=== PATIENT | female | born 1985 | race Caucasian/White ===

== ENCOUNTER 2018-02-06 21:01 | Observation (INO) | payer BC, SELFPAY ==
[2018-02-06 21:02] VITALS: BP 155/101; PULSE 100; RESP 15; TEMP 36.9; BMI 38.3
--- NOTE | 2018-02-06 22:15 | CT_ITS ---
STUDY: CT BRAIN WITHOUT CONTRAST REASON FOR EXAM: Female, 32 years old. Dizziness, headache RADIATION DOSAGE (If Supplied By Facility): CTDIvol = ( 44.99 ) mGy, DLP = ( 762.36 ) mGycm TECHNIQUE: Transaxial CT imaging of the brain was performed without administration of intravenous contrast material. Individualized dose optimization techniques were used for this CT. COMPARISON: None. FINDINGS: Normal soft tissue structures. Normal calvarium. Normal size ventricles and extra-axial spaces for the patient's age. Normal white matter tracts of the cerebral hemispheres. Normal basal ganglia and thalami. Normal brainstem. Normal cerebellum. There is no intracranial hemorrhage. There are no findings of an acute ischemic infarction. Normal visualized paranasal sinuses. CT/Brain/Head without Contrast IMPRESSION: Normal unenhanced CT scan of the brain. Electronically Signed: Jose Antonio Arroyo DO at 23:15 EDT Tel [phone], Service support ,
--- NOTE | 2018-02-06 22:15 | RAD_ITS ---
STUDY: X-RAY CHEST REASON FOR EXAM: Female, 32 years old. Nausea, dizziness TECHNIQUE: Single AP portable view of the chest. COMPARISON: 02/17/2017. FINDINGS: The lungs are clear and expanded. There is no demonstrated pleural abnormality. Normal size heart. Normal mediastinum and álvaro. Normal visualized pulmonary arteries. Normal visualized aortic arch and descending thoracic aorta. Normal visualized thoracic spine. Normal visualized ribs, clavicles, and shoulders. There is no demonstrated abnormality of the visualized soft tissue structures of the upper abdomen. RAD/Chest 1 View IMPRESSION: No acute cardiopulmonary disease. Electronically Signed: Allan Damon DO at 23:35 EDT , Service support ,
--- NOTE | 2018-02-06 22:15 | EKG12_ITS ---
Test Reason : Blood Pressure : / mmHG Vent. Rate : 089 BPM Atrial Rate : 089 BPM P-R Int : 136 ms QRS Dur : 096 ms QT Int : 362 ms P-R-T Axes : 048 062 028 degrees QTc Int : 440 ms Normal sinus rhythm Normal ECG Confirmed by LINDA PETERS, TAWANA ([id number]), editor map SHAKIRA OJEDA ([id number]) on 02/09/2018 2:17:47 PM Referred By: JAN Confirmed By:TAWANA MCKEON MD
[2018-02-06 22:26] LABS: Absolute Lymphocyte Count 3.81 X10^3/ul (0.83-4.51); Absolute Neutrophil Count 6.2 X10^3/uL (2.0-7.7); Basophil# 0.01 X10^3/uL; Basophil% 0.1 % (0-1); Eosinophils% 1.8 % (0-5); Hematocrit 41.2 % (37-47); Hemoglobin 13.6 g/dl (12.0-15.0); Lymphocyte # 3.81 X10^3/ul (4.0); Lymphocyte % 34.1 % (19-41); Mean Corpuscular Hgb 30.6 pg (27.0-32.0); Mean Corpuscular Volume 92.6 fL (81-99); Mean Platelet Vol. 9.5 fl (6.2-12.0); Monocyte# 0.92 X10^3/uL; Monocyte% 8.2 % (0-10); Neutrophil # 6.21 X10^3/uL (2.7-7.7); Neutrophil % 55.7 % (47-70); Platelet Count 319 K/mm3 (150-450); RBC Distribution Width CV 12.8 % (11.6-14.6); Red Blood Count 4.45 M/mm3 (4.2-5.4); White Blood Count 11.2 K/mm3 (4.4-11.0)
[2018-02-06 22:27] LABS: POSITIVE COUNT NO; POSITIVE DIFFERENTIAL NO; POSITIVE MORPHOLOGY NO
[2018-02-06 22:36] VITALS: O2SAT 97
[2018-02-06 22:37] VITALS: BP 132/86; PULSE 95; RESP 20; O2SAT 95
[2018-02-06 22:37] LABS: Partial Thromboplast Time 25.2 Seconds (24.1-36.2); Prothrombin Time (Protime)PT. 12.8 SECONDS (11.7-14.9)
[2018-02-06 22:44] LABS: Anion Gap 10 (5-15); BUN 14 mg/dL (7-18); BUN/Creat Ratio 17.7 RATIO (10-20); Calcium,Total 8.9 mg/dL (8.5-10.1); Chloride 106 mmol/L (98-107); Creatinine, Serum 0.79 mg/dL (0.55-1.02); EST Glomerular Filtration Rate 90 mL/min (>60); Est Glom Filt Rate - Afr Amer 109 mL/min (>60); Estimated Creatinine Clearance 97.48 ml/min; Glucose 189 mg/dL (74-106); Potassium 3.7 mmol/L (3.5-5.1); Sodium Level 141 mmol/L (136-145)
[2018-02-06 23:05] VITALS: BP 122/81; PULSE 91; RESP 23; O2SAT 95
[2018-02-06 23:05] LABS: Bedside Glucose 110 mg/dL (70-110)
[2018-02-06 23:09] VITALS: BP 122/80; PULSE 85; RESP 21; O2SAT 96
--- NOTE | 2018-02-06 23:46 | HP.PCM_ITS ---
Problem List (1) Neuropathy Status: Chronic (2) Type 2 diabetes mellitus Status: Chronic (3) Hypertension Status: Chronic History of Present Illness Date of Admission: 02/06/18 Chief Complaint: Left-sided body numbness and tingling. The patient is a 32 year old F with past medical history as mentioned above presented to the emergency department because of numbness on the left side of her body. Her symptoms started yesterday after she had multiple trials to have blood work done with numbness that started first on the left lower extremity, extending up to the left lower extremity and left side of her face. She has been having these symptoms constantly since yesterday. She did mention that she had history of peripheral neuropathy on both upper and lower extremities secondary to diabetes but stated that the symptoms and the feelings today are different. She has a history of type 2 diabetes mellitus and she has been on metformin and her blood sugar seemed to be under control. She has history of hypertension she has been on lisinopril until blood pressure seemed to be under control. She did mention that she was not able to get the words out. She denies blurry vision. She denies focal arm or leg weakness. During this encounter, patient was anxious and seemed to be stressed out. She mentioned that she is worried because she had a history of multiple sclerosis and essential tremor and she may have 1 of those. In the emergency department, her vital signs are stable. Her routine blood was unremarkable. Her EKG revealed normal sinus rhythm without evidence of acute ischemic changes or cardiac arrhythmias. Troponin is negative. Chest x-ray showed no acute findings. CT scan brain showed no acute infarction or hemorrhage. She is being admitted for left-sided anesthesia for evaluation. Past Medical History Past Medical History (Chronic Problems): Chronic Problems Neuropathy (Chronic) Type 2 diabetes mellitus (Chronic) Hypertension (Chronic) Allergies No Known Allergies Allergy (Verified 02/06/18 21:07) Home Medications: Ambulatory Orders Medication Instructions Recorded Norethindrone 0.35 mg PO DAILY 06/06/15 Lisinopril [Zestril] 10 mg PO DAILY 02/19/16 Metformin HCl [Glucophage] 750 mg PO DAILY 02/19/16 Multivitamin [Daily Multiple 1 each PO DAILY 02/19/16 Vitamin] Cholecalciferol (Vitamin D3) 50,000 units PO QWEEK 04/13/17 [Optimal D3] hydrALAZINE [Apresoline] 25 mg PO PRN PRN 02/06/18 Surgical History: no surgical history Psychiatric History: No pertinent psych hx [employer] 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 Denies: Anorexia, Chills, Fever Eyes: Denies: Blurred vision, Double vision, Drainage, Redness HEENT: Denies: Difficulty Hearing, Ear Pain, Eye Pain, Nasal Congestion, Sore Throat Cardiovascular: Denies: Chest Pain, Chest Tightness, Heaviness, Light Headedness , Palpitations, Syncope Respiratory: Denies: Cough, Pleuritic Pain, Shortness of Breath, Sputum production, Wheezing Gastrointestinal: Denies: Abdominal Pain, Constipation, Diarrhea, Nausea, Vomiting Genitourinary: Denies: Dysuria, Frequency, Hematuria Musculoskeletal: Denies: Arm Pain, Back Pain, Foot Pain Neurological: Reports: Numbness, Tingling. Denies: Balance problems, Blurred vision, Double vision, Confusion, Focal weakness, Incoordination Psychiatric: Denies: Anxiety, Depression Endocrine: Denies: Change in Body Habitus, Polydipsia VTE Information - Inpt Only VTE Present on Admission: No VTE Mechan Device Prophylaxis: None VTE Pharm Prophylaxis ordered?: No - Physical Exam General: Alert, Oriented x3, Cooperative, No apparent distress HEENT: Atraumatic, PERRLA, EOMI Oral: Moist Mucosa, No Gingival or Mucosal Lesions/ Ulcerations Neck: Supple, No JVD, Negative Carotid Bruits, Trachea Midline, Thyroid Normal Size and Texture Lungs: Clear to auscultation, No rhonchi, No wheeze, No rales, Diminished Cardiovascular: Regular rate, Regular Rhythm, Normal S1, Normal S2, No murmurs Abdomen: Bowel Sounds Present, Soft, Non Tender, Non-Distended, No Hepato- splenomegaly, Obese Extremities: No clubbing, No cyanosis, No edema Skin: No rashes, No breakdown Lymphatic: No Cervical, Supraclavicular, or Inguinal Adenopathy Neurological: Cranial nerves II-XII grossly intact, Motor Exam 5/5 strength throughout Psych/Mental Status: Normal Affect, Anxious, Alert and oriented to time, place, person, mood and affect Vital Signs Temp Pulse Resp BP Pulse Ox 98.5 F 85 21 H 122/80 H 96 02/06/18 21:02 02/06/18 23:09 02/06/18 23:09 02/06/18 23:09 02/06/18 23:09 Oxygen Delivery Method Room Air Weight: 237 lb 9.6 oz Body Mass Index (BMI) 38.3 Finger Stick Blood Glucose 110 Laboratory Tests Past 24 Hrs 02/06/18 02/06/18 02/06/18 21:30 21:30 21:30 WBC 11.2 H RBC 4.45 Hgb 13.6 Hct 41.2 MCV 92.6 MCH 30.6 MCHC 33.0 RDW 12.8 RDW Differential 43.0 Plt Count 319 MPV 9.5 Immature Gran % (Auto) 0.100 Neut % (Auto) 55.7 Lymph % (Auto) 34.1 Bulloch % (Auto) 8.2 Eos % (Auto) 1.8 Baso % (Auto) 0.1 Absolute Neuts (auto) 6.2 Absolute Lymphs (auto) 3.81 Total Counted Not Reportable PT 12.8 INR 1.0 APTT 25.2 Sodium 141 Potassium 3.7 Chloride 106 Carbon Dioxide 25.0 Anion Gap 10 BUN 14 Creatinine 0.79 Estim Creat Clear Calc 97.48 Est GFR (MDRD) Af Amer 109 Est GFR (MDRD) Non-Af 90 BUN/Creatinine Ratio 17.7 Glucose 189 H Calcium 8.9 Troponin I < 0.02 POC Glucose 02/06/18 23:03 POC Glucose 110 Clinical Impression(s) from Imaging Studies Brain CT 02/06/18 22:15 IMPRESSION: Normal unenhanced CT scan of the brain. Electronically Signed: Jose Antonio Arroyo DO at 23:15 EDT Tel [phone], Service support , Chest X-Ray 02/06/18 22:15 IMPRESSION: No acute cardiopulmonary disease. Electronically Signed: Allan Damon DO at 23:35 EDT , Service support , Assessment/Plan This is a 32 years old female patient presented to the emergency room because of numbness on the left side of her body that started yesterday after she had a trial of blood work drawn that failed and she is being admitted for evaluation. #1 left-sided paresthesia: It is not typical for stroke. She mentioned that her symptoms started yesterday after trial of blood work and started on the left leg and then went up to her left arm and left face. She does have a history of neuropathy but states that this feeling is different. She has no focal deficit on physical examination. Patient was anxious and almost tearful during the encounter. Vital signs are stable. Routine blood work was unremarkable. Chest x-ray, EKG and CT scan brain were unremarkable. At this time, I doubt stroke. Plan: Admit to PCU for observation, cardiac monitoring, NIH stroke scale, MRI brain, start baby aspirin,, Ativan as needed for anxiety and stress. If the MRI brain came back positive for stroke, patient will need full stroke workup. #2 hypertension: Blood pressure stable, continue lisinopril. #3 type 2 diabetes mellitus: ADA diet, Accu-Cheks, insulin sliding scale, hold metformin. #4 DVT prophylaxis: Low risk patient, no prophylaxis indicated. This note was generated with [employer] dictation software. It may contain incorrect words, spelling, and punctuation that were not noted in checking the note before signing. Code Visit OBSV E&M: 24161 Initial observation care L3
--- NOTE | 2018-02-06 23:47 | ED.VISSUMM ---
- ER Visit Summary Date of Service: 02/06/18 Chief Complaint: Left-sided numbness History of Present Illness: The patient is a 32 F who presents with numbness of the left face arm and leg which began at about 3:30 PM yesterday. She was having blood drawn at her physician's office. She began to feel lightheaded nauseated and dizzy. She was sent home and told to drink plenty of water. However she then developed left-sided numbness which is worsened since that time. She also complains of a mild headache. She believes of feeling weak all over. No speech difficulty or unilateral weakness. No history of prior similar symptoms. Physical Examination: Blood pressure 155/101 vitals otherwise unremarkable NIH stroke scale is 1 due to decreased sensation of the left side Heart regular rate and rhythm Lungs clear Abdomen soft Normal strength no ataxia Test Results: EKG shows sinus rhythm at a rate of 89. Laboratory studies unremarkable including normal coagulation studies negative troponin. Chest x-ray normal. CT head normal. Emergency Department Course and Treatment: She presents with unilateral paresthesias. I do feel she will require further workup likely to include MRI of the brain. Her episode yesterday of nausea lightheadedness dizziness was likely related to a vagal episode with her blood draw. Patient discussed with the hospitalist will be admitted. Treatment Plan: [] Disposition: Admit Impression: Unilateral paresthesias This note was generated with [employer] dictation software. It may contain incorrect words, spelling, and punctuation that were not noted in review of the chart prior to signing ED Disposition - Plan for ED Patient: Chief Complaint: Numb/Ting Referrals: Aleyda Pinto, LEANDRA-C [Primary Care Provider] -
[2018-02-06 23:49] VITALS: BP 134/87; PULSE 93; RESP 15; O2SAT 97
[2018-02-07] VITALS (15 sets, daily range): BP systolic 111–145; BP diastolic 66–97; PULSE 62–106; RESP 16–18; TEMP 36.2–36.8; O2SAT 94–97; BMI 37.8
--- NOTE | 2018-02-07 00:02 | MRI_ITS ---
STUDY: MRI BRAIN WITHOUT CONTRAST REASON FOR EXAM: Female, 32 years old. Left sided numbness and tingling. TECHNIQUE: Standardized multiplanar fat and water weighted pulse sequences were obtained. Several images are limited by patient motion. COMPARISON: CT of the head dated February 06, 2018 FINDINGS: Normal size of the ventricles and extra-axial spaces for the patient's age. There is a focus of abnormal T2 hyperintensity within the subcortical white matter left frontal lobe. This could be a focus of demyelination. This measures approximately 8 mm in greatest dimension. The white matter has a grossly normal appearance. There is no evidence for recent intracranial ischemia or other cause of cytotoxic edema on diffusion weighted imaging (DWI). Normal T2* images of the brain without demonstrated susceptibility artifact. There is no demonstrated hemosiderin stain. Normal bilateral basal ganglia. Normal thalami. There is no extra-axial fluid accumulation. Normal flow voids within the major intracranial circulation suggesting patency by spin echo criteria. Normal sella turcica, pituitary gland, infundibular stalk, optic chiasm and hypothalamus. Normal tectal plate and pineal gland. Normal midbrain, kelly and medulla. Normal cerebellum. Normal basal cisterns. Normal bilateral temporal bones. Normal bilateral internal auditory canals. No demonstrated orbital abnormality, within the constraints of a routine brain study. Normal visualized paranasal sinuses. Normal calvarium and skull base. Normal visualized soft tissue structures. Normal visualized upper cervical spine. MRI/Brain without Contrast IMPRESSION: Focus of abnormal T2 hyperintensity in the left frontal lobe. Differential considerations include etiologies for demyelination including multiple sclerosis or ADEM. Electronically Signed: Mecca Peña MD at 15:01 EDT , Service support ,
[2018-02-07] MEDS: Acetaminophen 325 MG Tablet 650 MG PO ×4 (00:41→19:55)
[2018-02-07 07:00] LABS: Bedside Glucose 134 mg/dL (70-110)
[2018-02-07 07:28] LABS: Cholesterol 150 mg/dL (200); High Density Lipoprotein 31 mg/dL; Triglycerides 159 mg/dL; Very Low Density Lipoprotein 32 mg/dL (5-40)
[2018-02-07] MEDS: Aspirin 81 MG TAB.CHEW PO (08:01)
[2018-02-07] MEDS: NORETHINDRONE 0.35 MG TABLET PO (08:01)
[2018-02-07] MEDS: Lisinopril 10 MG Tablet PO (08:01)
--- NOTE | 2018-02-07 12:54 | PCM.PN.HOSP ---
Subjective: Seen and examined. She has no complaints this morning. Left-sided numbness has improved significantly. She denies any dizziness, loss of consciousness, palpitations, headaches, diarrhea vomiting. Review of systems otherwise negative. Vitals/I&O's: Vital Signs Temp Pulse Resp BP Pulse Ox 98.3 F 62 16 122/72 H 94 02/07/18 12:00 02/07/18 12:00 02/07/18 12:00 02/07/18 12:00 02/07/18 12:00 Oxygen Delivery Method Room Air Weight: 234 lb 1.6 oz Body Mass Index (BMI) 37.8 Intake and Output for Last 24 Hours 02/05/18 02/06/18 02/07/18 23:59 23:59 23:59 Intake Total 360 / 360 Balance 360 / 360 General: Alert, Oriented x3, Cooperative, No apparent distress HEENT: Atraumatic, PERRLA, EOMI, Normocephalic Oral: Moist Mucosa Neck: Supple, No JVD, Negative Carotid Bruits Lungs: Clear to auscultation, Normal air movement, No rhonchi, No wheeze, No rales Cardiovascular: Regular rate, Regular Rhythm, Normal S1, Normal S2, No murmurs Abdomen: Bowel Sounds Present, Soft, Non Tender, Non-Distended, No Hepato-splenomegaly Extremities: No clubbing, No cyanosis, No edema, Capillary Refill Less than 3 Seconds, No Calf Tenderness Skin: No rashes, No breakdown Musculoskeletal: No Tenderness to Palpation of Joints or Extremities, No Muscle Wasting Lymphatic: No Cervical, Supraclavicular, or Inguinal Adenopathy Neurological: Cranial nerves II-XII grossly intact, Motor Exam 5/5 strength throughout, Muscle tone normal, Sensory exam intact to light touch and pain, Coordination normal, Gait narrow based and stable Psych/Mental Status: Normal Affect, Appropriate, Alert and oriented to time, place, person, mood and affect Laboratory Results 02/07/18 06:30: Triglycerides 159, Cholesterol 150, LDL Cholesterol 87, VLDL Cholesterol 32, HDL Cholesterol 31 L 02/07/18 06:48: POC Glucose 134 H Current Medications Acetaminophen (Tylenol) 650 mg PO Q6H PRN PRN PRN Reason: Headache/Temp>99F Last Admin: 02/07/18 06:54 Dose: 650 mg Aspirin (Aspirin, Baby) 81 mg PO DAILY@0800 [facility] Last Admin: 02/07/18 08:01 Dose: 81 mg Dextrose (D50w Syringe) 0 gm IV X1 PRN; Protocol PRN Reason: Hypoglycemia Glucagon () 1 mg IM .X1 PRN PRN Reason: Hypoglycemia Insulin Aspart (Novolog Flexpen (Bkc)) 0 units SC ACHS ALEXI PRN Reason: Protocol Last Admin: 02/07/18 11:43 Dose: Not Given Lisinopril (Zestril) 10 mg PO DAILY [facility] Last Admin: 02/07/18 08:01 Dose: 10 mg Lorazepam (Ativan) 0.5 mg PO Q12H PRN PRN PRN Reason: ANXIETY Magnesium Hydroxide (Milk Of Magnesia) 30 ml PO DAILY PRN PRN Reason: Constipation Norethindrone (Kassandra) 0.35 mg PO DAILY [facility] Last Admin: 02/07/18 08:01 Dose: 0.35 mg Sodium Chloride () 5 - 30 ml IV UD PRN PRN Reason: SALINE FLUSH Zolpidem Tartrate (Ambien (Generic)) 5 mg PO QHS PRN PRN PRN Reason: INSOMNIA Medical Necessity - Tobacco Use Smoking Status: Never smoker Tobacco Use: Non-smoker Assessment/Plan 82-year-old female was admitted with a complaint of worsening left-sided numbness of one day duration. 1. Left sided parasthesia Solving. States numbness in the left side of her body is much better than when she was admitted yesterday. Numbness of the left lower extremity left upper extremity and left side of her face is virtually resolved. Exam is largely intact. EKG, chest x-ray and CT scan of the brain were negative. NIH stroke scale today is 2 On baby aspirin. Also on Ativan as needed. Lipid panel was WNL. MRI of the brain ordered and is pending. 2. Hypertension: stable. On lisinopril 3. Type 2 diabetes mellitus: diabetic diet. Accu-Cheks before meals at bedtime. On insulin sliding scale. Metformin on hold. 4. DVT prophylaxis: PCD's This note was generated with [employer] software. It may contain incorrect words, spelling, and punctuation that were not noted in checking the note before signing. Code Visit OBSV E&M: 06147 Subsequent observation care L2
--- NOTE | 2018-02-07 12:58 | PN_ITS ---
Subjective: Seen and examined. She has no complaints this morning. Left-sided numbness has improved significantly. She denies any dizziness, loss of consciousness, palpitations, headaches, diarrhea vomiting. Review of systems otherwise negative. Vitals/I&O's: Vital Signs Temp Pulse Resp BP Pulse Ox 98.3 F 62 16 122/72 H 94 02/07/18 12:00 02/07/18 12:00 02/07/18 12:00 02/07/18 12:00 02/07/18 12:00 Oxygen Delivery Method Room Air Weight: 234 lb 1.6 oz Body Mass Index (BMI) 37.8 Intake and Output for Last 24 Hours 02/05/18 02/06/18 02/07/18 23:59 23:59 23:59 Intake Total 360 / 360 Balance 360 / 360 General: Alert, Oriented x3, Cooperative, No apparent distress HEENT: Atraumatic, PERRLA, EOMI, Normocephalic Oral: Moist Mucosa Neck: Supple, No JVD, Negative Carotid Bruits Lungs: Clear to auscultation, Normal air movement, No rhonchi, No wheeze, No rales Cardiovascular: Regular rate, Regular Rhythm, Normal S1, Normal S2, No murmurs Abdomen: Bowel Sounds Present, Soft, Non Tender, Non-Distended, No Hepato- splenomegaly Extremities: No clubbing, No cyanosis, No edema, Capillary Refill Less than 3 Seconds, No Calf Tenderness Skin: No rashes, No breakdown Musculoskeletal: No Tenderness to Palpation of Joints or Extremities, No Muscle Wasting Lymphatic: No Cervical, Supraclavicular, or Inguinal Adenopathy Neurological: Cranial nerves II-XII grossly intact, Motor Exam 5/5 strength throughout, Muscle tone normal, Sensory exam intact to light touch and pain, Coordination normal, Gait narrow based and stable Psych/Mental Status: Normal Affect, Appropriate, Alert and oriented to time, place, person, mood and affect Laboratory Results 02/07/18 06:30: Triglycerides 159, Cholesterol 150, LDL Cholesterol 87, VLDL Cholesterol 32, HDL Cholesterol 31 L 02/07/18 06:48: POC Glucose 134 H Current Medications Acetaminophen (Tylenol) 650 mg PO Q6H PRN PRN PRN Reason: Headache/Temp>99F Last Admin: 02/07/18 06:54 Dose: 650 mg Aspirin (Aspirin, Baby) 81 mg PO DAILY@0800 [facility] Last Admin: 02/07/18 08:01 Dose: 81 mg Dextrose (D50w Syringe) 0 gm IV X1 PRN; Protocol PRN Reason: Hypoglycemia Glucagon () 1 mg IM .X1 PRN PRN Reason: Hypoglycemia Insulin Aspart (Novolog Flexpen (Bkc)) 0 units SC ACHS ALEXI PRN Reason: Protocol Last Admin: 02/07/18 11:43 Dose: Not Given Lisinopril (Zestril) 10 mg PO DAILY [facility] Last Admin: 02/07/18 08:01 Dose: 10 mg Lorazepam (Ativan) 0.5 mg PO Q12H PRN PRN PRN Reason: ANXIETY Magnesium Hydroxide (Milk Of Magnesia) 30 ml PO DAILY PRN PRN Reason: Constipation Norethindrone (Kassandra) 0.35 mg PO DAILY [facility] Last Admin: 02/07/18 08:01 Dose: 0.35 mg Sodium Chloride () 5 - 30 ml IV UD PRN PRN Reason: SALINE FLUSH Zolpidem Tartrate (Ambien (Generic)) 5 mg PO QHS PRN PRN PRN Reason: INSOMNIA Medical Necessity - Tobacco Use Smoking Status: Never smoker Tobacco Use: Non-smoker Assessment/Plan 82-year-old female was admitted with a complaint of worsening left-sided numbness of one day duration. 1. Left sided parasthesia * Solving. States numbness in the left side of her body is much better than when she was admitted yesterday. Numbness of the left lower extremity left upper extremity and left side of her face is virtually resolved. * Exam is largely intact. * EKG, chest x-ray and CT scan of the brain were negative. * NIH stroke scale today is 2 * On baby aspirin. Also on Ativan as needed. Lipid panel was WNL. * MRI of the brain ordered and is pending. * 2. Hypertension: stable. On lisinopril 3. Type 2 diabetes mellitus: diabetic diet. Accu-Cheks before meals at bedtime. On insulin sliding scale. Metformin on hold. 4. DVT prophylaxis: PCD's This note was generated with [employer] software. It may contain incorrect words, spelling, and punctuation that were not noted in checking the note before signing. Code Visit OBSV E&M: 60594 Subsequent observation care L2
[2018-02-07 13:35] LABS: Bedside Glucose 233 mg/dL (70-110)
[2018-02-07 16:11] LABS: Bedside Glucose 110 mg/dL (70-110)
[2018-02-07 22:16] LABS: Bedside Glucose 163 mg/dL (70-110)
[2018-02-08] VITALS (12 sets, daily range): BP systolic 116–141; BP diastolic 66–104; PULSE 71–102; RESP 16; TEMP 36.4–37.1; O2SAT 93–97; BMI 37.8
[2018-02-08 07:01] LABS: Bedside Glucose 128 mg/dL (70-110)
[2018-02-08] MEDS: NORETHINDRONE 0.35 MG TABLET PO (07:40)
[2018-02-08] MEDS: Aspirin 81 MG TAB.CHEW PO (08:41)
[2018-02-08] MEDS: Lisinopril 10 MG Tablet PO (08:42)
[2018-02-08] MEDS: Glucerna Shake 120 ML LIQUID PO (08:44)
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
[2018-02-08 12:00] LABS: Bedside Glucose 137 mg/dL (70-110)
--- NOTE | 2018-02-08 12:21 | PCM.PN.HOSP ---
Subjective: Seen and examined this morning. Left-sided numbness is improved significantly and she only complains of mild paresthesia in her fingers and toes on left side. She denies any headache, loss of consciousness, dizziness, palpitations, belly pain, diarrhea vomiting. Review of systems otherwise negative. Vitals/I&O's: Vital Signs Temp Pulse Resp BP Pulse Ox 97.6 F L 97 16 140/88 H 95 02/08/18 08:00 02/08/18 10:55 02/08/18 08:00 02/08/18 08:00 02/08/18 08:00 Oxygen Delivery Method Room Air Weight: 234 lb 1.6 oz Body Mass Index (BMI) 37.8 Intake and Output for Last 24 Hours 02/06/18 02/07/18 02/08/18 23:59 23:59 23:59 Intake Total 600 / 600 960 / 960 Balance 600 / 600 960 / 960 General: Alert, Oriented x3, Cooperative, No apparent distress HEENT: Atraumatic, PERRLA, EOMI, Normocephalic Oral: Moist Mucosa Neck: Supple, No JVD, Negative Carotid Bruits, Negative Hepatojugular Reflux, No Nodes Lungs: Clear to auscultation, Normal air movement, No rhonchi, No wheeze, No rales Cardiovascular: Regular rate, Regular Rhythm, Normal S1, Normal S2, No murmurs Abdomen: Bowel Sounds Present, Soft, Non Tender, Non-Distended, No Hepato-splenomegaly Extremities: No clubbing, No cyanosis, No edema, Capillary Refill Less than 3 Seconds Skin: No rashes, No breakdown Musculoskeletal: No Tenderness to Palpation of Joints or Extremities Lymphatic: No Cervical, Supraclavicular, or Inguinal Adenopathy Neurological: Cranial nerves II-XII grossly intact, Deep Tendon Reflexes 2+/4 and Symmetrical, Neuro grossly intact, Motor Exam 5/5 strength throughout Psych/Mental Status: Normal Affect, Appropriate, Alert and oriented to time, place, person, mood and affect Laboratory Results 02/07/18 13:31: POC Glucose 233 H 02/07/18 16:06: POC Glucose 110 02/07/18 22:00: POC Glucose 163 H 02/08/18 06:55: POC Glucose 128 H 02/08/18 11:13: PT Ratio Pending, INR Pending, APTT Pending, Thrombin Time Pending, Thrombin Time Mix Pending, Lupus Anticoag aPTT Pending, Protein C Antigen Pending, Prot C Funct Activity Pending, Functional Protein S Pending, Free Protein S Pending, Total Protein S Pending, Func Antithrombin III Pending, Factor V Leiden Mutat Pending, Anti-Cardiolipin IgG Ab Pending, Anti-Cardiolipin IgM Ab Pending 02/08/18 11:46: POC Glucose 137 H Current Medications Acetaminophen (Tylenol) 650 mg PO Q6H PRN PRN PRN Reason: Headache/Temp>99F Last Admin: 02/07/18 19:55 Dose: 650 mg Amitriptyline HCl (Elavil) 25 mg PO QHS [facility] Aspirin (Aspirin, Baby) 81 mg PO DAILY@0800 [facility] Last Admin: 02/08/18 08:41 Dose: 81 mg Dextrose (D50w Syringe) 0 gm IV X1 PRN; Protocol PRN Reason: Hypoglycemia Ergocalciferol (Vitamin D) 50,000 unit PO Q7D [facility] Glucagon () 1 mg IM .X1 PRN PRN Reason: Hypoglycemia Insulin Aspart (Novolog Flexpen (Bkc)) 0 units SC ACHS [facility] PRN Reason: Protocol Last Admin: 02/08/18 11:48 Dose: Not Given Lisinopril (Zestril) 10 mg PO DAILY [facility] Last Admin: 02/08/18 08:42 Dose: 10 mg Lorazepam (Ativan) 0.5 mg PO Q12H PRN PRN PRN Reason: ANXIETY Magnesium Hydroxide (Milk Of Magnesia) 30 ml PO DAILY PRN PRN Reason: Constipation Nutritional Formula (Lactose Free) (Glucerna Shake) 120 ml PO TIDCM [facility] Last Admin: 02/08/18 11:50 Dose: Not Given Sodium Chloride () 5 - 30 ml IV UD PRN PRN Reason: SALINE FLUSH Zolpidem Tartrate (Ambien (Generic)) 5 mg PO QHS PRN PRN PRN Reason: INSOMNIA Medical Necessity - Tobacco Use Smoking Status: Never smoker Tobacco Use: Non-smoker Assessment/Plan 82-year-old female was admitted with a complaint of worsening left-sided numbness of one day duration. 1. Left sided parasthesia Resolving. Numbness on left side of body is much better. MRI showed 8 mm hyperintense lesion in the left frontal lobe. Allergic consulted. Thinks this may be due to conversion disorder versus complex migraine. She was started on zolpidem. Also on baby aspirin and Ativan as needed. 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 antiPhospholipid and protein CLIENT SOLUTIONS DIRECTOR panel ordered. 2. Hypertension: stable. On lisinopril 3. Type 2 diabetes mellitus with neuropathy Since blood sugars are well controlled and she is only on metformin. As such this history of neuropathy may be due to other causes and not necessarily diabetes in light of well-controlled diabetes. Insulin sliding scale.: diabetic diet. Accu-Cheks before meals at bedtime. On insulin sliding scale. Will resume metformin 4. DVT prophylaxis: PCD's This note was generated with Imagimodation software. It may contain incorrect words, spelling, and punctuation that were not noted in checking the note before signing. Code Visit OBSV E&M: 18593 Subsequent observation care L2
--- NOTE | 2018-02-08 12:26 | PN_ITS ---
Subjective: Seen and examined this morning. Left-sided numbness is improved significantly and she only complains of mild paresthesia in her fingers and toes on left side. She denies any headache, loss of consciousness, dizziness, palpitations, belly pain, diarrhea vomiting. Review of systems otherwise negative. Vitals/I&O's: Vital Signs Temp Pulse Resp BP Pulse Ox 97.6 F L 97 16 140/88 H 95 02/08/18 08:00 02/08/18 10:55 02/08/18 08:00 02/08/18 08:00 02/08/18 08:00 Oxygen Delivery Method Room Air Weight: 234 lb 1.6 oz Body Mass Index (BMI) 37.8 Intake and Output for Last 24 Hours 02/06/18 02/07/18 02/08/18 23:59 23:59 23:59 Intake Total 600 / 600 960 / 960 Balance 600 / 600 960 / 960 General: Alert, Oriented x3, Cooperative, No apparent distress HEENT: Atraumatic, PERRLA, EOMI, Normocephalic Oral: Moist Mucosa Neck: Supple, No JVD, Negative Carotid Bruits, Negative Hepatojugular Reflux, No Nodes Lungs: Clear to auscultation, Normal air movement, No rhonchi, No wheeze, No rales Cardiovascular: Regular rate, Regular Rhythm, Normal S1, Normal S2, No murmurs Abdomen: Bowel Sounds Present, Soft, Non Tender, Non-Distended, No Hepato- splenomegaly Extremities: No clubbing, No cyanosis, No edema, Capillary Refill Less than 3 Seconds Skin: No rashes, No breakdown Musculoskeletal: No Tenderness to Palpation of Joints or Extremities Lymphatic: No Cervical, Supraclavicular, or Inguinal Adenopathy Neurological: Cranial nerves II-XII grossly intact, Deep Tendon Reflexes 2+/4 and Symmetrical, Neuro grossly intact, Motor Exam 5/5 strength throughout Psych/Mental Status: Normal Affect, Appropriate, Alert and oriented to time, place, person, mood and affect Laboratory Results 02/07/18 13:31: POC Glucose 233 H 02/07/18 16:06: POC Glucose 110 02/07/18 22:00: POC Glucose 163 H 02/08/18 06:55: POC Glucose 128 H 02/08/18 11:13: PT Ratio Pending, INR Pending, APTT Pending, Thrombin Time Pending, Thrombin Time Mix Pending, Lupus Anticoag aPTT Pending, Protein C Antigen Pending, Prot C Funct Activity Pending, Functional Protein S Pending, Free Protein S Pending, Total Protein S Pending, Func Antithrombin III Pending, Factor V Leiden Mutat Pending, Anti-Cardiolipin IgG Ab Pending, Anti- Cardiolipin IgM Ab Pending 02/08/18 11:46: POC Glucose 137 H Current Medications Acetaminophen (Tylenol) 650 mg PO Q6H PRN PRN PRN Reason: Headache/Temp>99F Last Admin: 02/07/18 19:55 Dose: 650 mg Amitriptyline HCl (Elavil) 25 mg PO QHS [facility] Aspirin (Aspirin, Baby) 81 mg PO DAILY@0800 [facility] Last Admin: 02/08/18 08:41 Dose: 81 mg Dextrose (D50w Syringe) 0 gm IV X1 PRN; Protocol PRN Reason: Hypoglycemia Ergocalciferol (Vitamin D) 50,000 unit PO Q7D [facility] Glucagon () 1 mg IM .X1 PRN PRN Reason: Hypoglycemia Insulin Aspart (Novolog Flexpen (Bkc)) 0 units SC ACHS [facility] PRN Reason: Protocol Last Admin: 02/08/18 11:48 Dose: Not Given Lisinopril (Zestril) 10 mg PO DAILY [facility] Last Admin: 02/08/18 08:42 Dose: 10 mg Lorazepam (Ativan) 0.5 mg PO Q12H PRN PRN PRN Reason: ANXIETY Magnesium Hydroxide (Milk Of Magnesia) 30 ml PO DAILY PRN PRN Reason: Constipation Nutritional Formula (Lactose Free) (Glucerna Shake) 120 ml PO TIDCM [facility] Last Admin: 02/08/18 11:50 Dose: Not Given Sodium Chloride () 5 - 30 ml IV UD PRN PRN Reason: SALINE FLUSH Zolpidem Tartrate (Ambien (Generic)) 5 mg PO QHS PRN PRN PRN Reason: INSOMNIA Medical Necessity - Tobacco Use Smoking Status: Never smoker Tobacco Use: Non-smoker Assessment/Plan 82-year-old female was admitted with a complaint of worsening left-sided numbness of one day duration. 1. Left sided parasthesia * Resolving. Numbness on left side of body is much better. * MRI showed 8 mm hyperintense lesion in the left frontal lobe. * Allergic consulted. Thinks this may be due to conversion disorder versus complex migraine. * She was started on zolpidem. Also on baby aspirin and Ativan as needed. Also on amitryptyline and vitamin D * Also complains of a history of multiple miscarriages. antiPhospholipid and protein CIGARETTE PACKAGE EXAMINER panel ordered. * 2. Hypertension: stable. On lisinopril 3. Type 2 diabetes mellitus with neuropathy * Since blood sugars are well controlled and she is only on metformin. As such this history of neuropathy may be due to other causes and not necessarily diabetes in light of well-controlled diabetes. * Insulin sliding scale.: diabetic diet. Accu-Cheks before meals at bedtime. On insulin sliding scale. Will resume metformin 4. DVT prophylaxis: PCD's This note was generated with Wisegateation software. It may contain incorrect words, spelling, and punctuation that were not noted in checking the note before signing. Code Visit OBSV E&M: 28716 Subsequent observation care L2
[2018-02-08] MEDS: Acetaminophen 325 MG Tablet 650 MG PO (16:12)
[2018-02-08 16:16] LABS: Bedside Glucose 101 mg/dL (70-110)
[2018-02-08 18:51] LABS: Bedside Glucose 223 mg/dL (70-110)
[2018-02-08] MEDS: Amitriptyline 25 MG Tablet PO (21:26)
[2018-02-08 22:45] LABS: Bedside Glucose 151 mg/dL (70-110)
[2018-02-09] VITALS (9 sets, daily range): BP systolic 112–132; BP diastolic 70–91; PULSE 72–106; RESP 16–18; TEMP 36.9–37.3; O2SAT 92–97; BMI 37.8
[2018-02-09 06:56] LABS: Bedside Glucose 134 mg/dL (70-110)
[2018-02-09] MEDS: Lisinopril 10 MG Tablet PO (10:43)
[2018-02-09 12:21] LABS: Bedside Glucose 124 mg/dL (70-110)
[2018-02-09 15:09] LABS: Thyroid Stim Hormone (TSH) 1.79 uIU/mL (0.358-3.74)
--- NOTE | 2018-02-09 15:38 | DCINST_ITS ---
- Discharge Diagnoses Current Active Problems: Current Active and Chronic Problems Neuropathy (Chronic) Type 2 diabetes mellitus (Chronic) Hypertension (Chronic) You will use the following diet at home:: Other - Resume previous diet Your food should be the consistency of: Regular Your liquids should be the consistency of: Regular/Thin Discharge Activity: Return to Normal Activity Return to work on:: 02/11/18 May resume sexual activity in: No Restrictions Call your doctor if you observe: Fever of 101 or Higher, Shortness of breath, Dizziness, Fainting spells, Swelling in the ankles, Chest pain, Uncontrolled pain, - - unilateral weakness, slurred speech, increasing numbness or tingling on one side and not the other, facial droop Additional Instructions: Dr. Alvarez thinks you are having migraines. Sometimes with migraines people can have stroke symptoms. copntrol pills cause migraines and so we have discontinued the control pill. You will need to use an alternate method of control. Make sure to stay well hydrated to help decrease headaches. Dr. Alvarez has started you on a medication called Elavil at bedtime to help decrease the amount of headaches you are having. You take it at bedtime because it can make you sleepy. Elavil is not addictive. It's biggest side effects are it makes you sleepy and it can cause constipation and dry mouth. Pending Tests on Discharge: Hypercoagulable workup Allergies/Adverse Reactions: Allergies No Known Allergies Allergy (Verified 02/06/18 21:07) Medications to take at Discharge Lisinopril [Zestril] 10 mg PO DAILY 02/19/16 Metformin HCl [Glucophage] 1,000 mg PO DAILY 02/19/16 Multivitamin [Daily Multiple Vitamin] 1 each PO DAILY 02/19/16 Cholecalciferol (Vitamin D3) [Optimal D3] 50,000 units PO QWEEK 04/13/17 hydrALAZINE [Apresoline] 25 mg PO PRN PRN 02/06/18 Amitriptyline HCl [Elavil] 25 mg PO QHS #30 tab 02/09/18 The following prescriptions were given: Amitriptyline HCl [Elavil] 25 mg PO QHS #30 tab Primary Care Physician: Aleyda Pinto, GAS BURNER OPERATOR-C [Primary Care Provider] - Please follow up with your Primary Care Physician in: 1 week Please Follow Up With: Adalberto Alvarez MD When: 2-4 weeks Proposed Discharge Date: 02/09/18
--- NOTE | 2018-02-09 15:40 | PCM.DC.SUM ---
Discharge Date and Diagnosis Date of Admission: 02/06/18 Date of Discharge: 02/09/18 - Primary Discharge Diagnosis Active and Suspected Problems Sinus tachycardia (Acute) - etiology unclear - TSH is normal Complex Migraine (Suspected) vs Conversion reaction - Secondary Discharge Diagnosis Chronic Problems History of multiple miscarriages (Chronic) X12 Neuropathy (Chronic) Type 2 diabetes mellitus (Chronic) Hypertension (Chronic) Hospital Course and Treatment Imaging Results: Clinical Impression(s) from Imaging Studies Brain CT 02/06/18 22:15 IMPRESSION: Normal unenhanced CT scan of the brain. Electronically Signed: Jose Antonio Arroyo DO at 23:15 EDT Tel [phone], Service support , Chest X-Ray 02/06/18 22:15 IMPRESSION: No acute cardiopulmonary disease. Electronically Signed: Allan Damon DO at 23:35 EDT , Service support , Brain MRI 02/07/18 00:02 IMPRESSION: Focus of abnormal T2 hyperintensity in the left frontal lobe. Differential considerations include etiologies for demyelination including multiple sclerosis or ADEM. Electronically Signed: Mecca Peña MD at 15:01 EDT , Service support , Laboratory Tests 02/06/18 02/06/18 02/06/18 21:30 21:30 21:30 WBC 11.2 H RBC 4.45 Hgb 13.6 Hct 41.2 MCV 92.6 MCH 30.6 MCHC 33.0 RDW 12.8 RDW Differential 43.0 Plt Count 319 MPV 9.5 Immature Gran % (Auto) 0.100 Neut % (Auto) 55.7 Lymph % (Auto) 34.1 [place] % (Auto) 8.2 Eos % (Auto) 1.8 Baso % (Auto) 0.1 Absolute Neuts (auto) 6.2 Absolute Lymphs (auto) 3.81 Total Counted Not Reportable PT 12.8 INR 1.0 APTT 25.2 Sodium 141 Potassium 3.7 Chloride 106 Carbon Dioxide 25.0 Anion Gap 10 BUN 14 Creatinine 0.79 Estim Creat Clear Calc 97.48 Est GFR (MDRD) Af Amer 109 Est GFR (MDRD) Non-Af 90 BUN/Creatinine Ratio 17.7 Glucose 189 H Calcium 8.9 Troponin I < 0.02 Triglycerides Cholesterol LDL Cholesterol VLDL Cholesterol HDL Cholesterol TSH POC Glucose 02/06/18 02/07/18 02/07/18 23:03 06:30 06:48 WBC RBC Hgb Hct MCV MCH MCHC RDW RDW Differential Plt Count MPV Immature Gran % (Auto) Neut % (Auto) Lymph % (Auto) [place] % (Auto) Eos % (Auto) Baso % (Auto) Absolute Neuts (auto) Absolute Lymphs (auto) Total Counted PT INR APTT Sodium Potassium Chloride Carbon Dioxide Anion Gap BUN Creatinine Estim Creat Clear Calc Est GFR (MDRD) Af Amer Est GFR (MDRD) Non-Af BUN/Creatinine Ratio Glucose Calcium Troponin I Triglycerides 159 Cholesterol 150 LDL Cholesterol 87 VLDL Cholesterol 32 HDL Cholesterol 31 L TSH POC Glucose 110 134 H 02/07/18 02/07/18 02/07/18 13:31 16:06 22:00 WBC RBC Hgb Hct MCV MCH MCHC RDW RDW Differential Plt Count MPV Immature Gran % (Auto) Neut % (Auto) Lymph % (Auto) [place] % (Auto) Eos % (Auto) Baso % (Auto) Absolute Neuts (auto) Absolute Lymphs (auto) Total Counted PT INR APTT Sodium Potassium Chloride Carbon Dioxide Anion Gap BUN Creatinine Estim Creat Clear Calc Est GFR (MDRD) Af Amer Est GFR (MDRD) Non-Af BUN/Creatinine Ratio Glucose Calcium Troponin I Triglycerides Cholesterol LDL Cholesterol VLDL Cholesterol HDL Cholesterol TSH POC Glucose 233 H 110 163 H 02/08/18 02/08/18 02/08/18 06:55 11:46 16:08 WBC RBC Hgb Hct MCV MCH MCHC RDW RDW Differential Plt Count MPV Immature Gran % (Auto) Neut % (Auto) Lymph % (Auto) [place] % (Auto) Eos % (Auto) Baso % (Auto) Absolute Neuts (auto) Absolute Lymphs (auto) Total Counted PT INR APTT Sodium Potassium Chloride Carbon Dioxide Anion Gap BUN Creatinine Estim Creat Clear Calc Est GFR (MDRD) Af Amer Est GFR (MDRD) Non-Af BUN/Creatinine Ratio Glucose Calcium Troponin I Triglycerides Cholesterol LDL Cholesterol VLDL Cholesterol HDL Cholesterol TSH POC Glucose 128 H 137 H 101 02/08/18 02/08/18 02/09/18 18:42 21:16 06:42 WBC RBC Hgb Hct MCV MCH MCHC RDW RDW Differential Plt Count MPV Immature Gran % (Auto) Neut % (Auto) Lymph % (Auto) [place] % (Auto) Eos % (Auto) Baso % (Auto) Absolute Neuts (auto) Absolute Lymphs (auto) Total Counted PT INR APTT Sodium Potassium Chloride Carbon Dioxide Anion Gap BUN Creatinine Estim Creat Clear Calc Est GFR (MDRD) Af Amer Est GFR (MDRD) Non-Af BUN/Creatinine Ratio Glucose Calcium Troponin I Triglycerides Cholesterol LDL Cholesterol VLDL Cholesterol HDL Cholesterol TSH POC Glucose 223 H 151 H 134 H 02/09/18 02/09/18 12:08 14:28 WBC RBC Hgb Hct MCV MCH MCHC RDW RDW Differential Plt Count MPV Immature Gran % (Auto) Neut % (Auto) Lymph % (Auto) [place] % (Auto) Eos % (Auto) Baso % (Auto) Absolute Neuts (auto) Absolute Lymphs (auto) Total Counted PT INR APTT Sodium Potassium Chloride Carbon Dioxide Anion Gap BUN Creatinine Estim Creat Clear Calc Est GFR (MDRD) Af Amer Est GFR (MDRD) Non-Af BUN/Creatinine Ratio Glucose Calcium Troponin I Triglycerides Cholesterol LDL Cholesterol VLDL Cholesterol HDL Cholesterol TSH 1.79 POC Glucose [address] Adalberto Alvarez-neurology Operations: None Procedures: None Summary of Care Provided: The patient is a 32 year old F with a past medical history of diabetes mellitus type 2, peripheral neuropathy, obesity and hypertension who presented to the ED at [facility] on 02/06/2018 complaining of numbness on the left side of her body. She stated the symptoms started the preceding day after multiple attempts to obtain blood for lab work were unsuccessful. She denied any weakness. CT brain in the emergency room showed no acute findings. Troponin was within normal limits. Lab was unremarkable. EKG showed normal sinus rhythm with no evidence of ischemia. She was admitted to a monitored bed on the progressive care unit and the stroke protocol was initiated. Dr. Alvarez was consulted. MRI of the brain showed a focus of abnormal T2 hyperintensity in the left frontal lobe but was otherwise unremarkable. Dr. Alvarez's impression was complex migraine vs conversion reaction. She was started on elavil at HS. BCP's were discontinued. A hypercoagulable panel was ordered but the results are still pending at the time of DC. Telemetry showed NSR and ST with no significant ectopy. A TSH was checked and was WNL. She seems to be quite anxious. On 02/09 she refused PT and OT evaluations and was ambulating without difficulty and without assist. She stated the numbness had mostly resolved. She was discharged home and will resume her previous medications with the addition of Elavil 25 mg p.o. nightly. She will follow-up with her primary care provider in [address] Alvarez in 2-4 weeks. PE at the time of DC revealed no focal neurologic deficits and she was alert and oriented X 3. the heart had a RRR without MM, gallop or rub. The lungs were CTA. She had no edema and the abdomen was soft with no pain with palpation. This note was generated with [employer] dictation software. It may contain incorrect words, spelling, and punctuation that were not noted in checking the note before signing. Discharge Activity: Return to Normal Activity Return to work on:: 02/11/18 May resume sexual activity in: No Restrictions Call your doctor if you observe: Fever of 101 or Higher, Shortness of breath, Dizziness, Fainting spells, Swelling in the ankles, Chest pain, Uncontrolled pain, - - unilateral weakness, slurred speech, increasing numbness or tingling on one side and not the other, facial droop Home Medications: Medications to take at Discharge Lisinopril [Zestril] 10 mg PO DAILY 02/19/16 Metformin HCl [Glucophage] 1,000 mg PO DAILY 02/19/16 Multivitamin [Daily Multiple Vitamin] 1 each PO DAILY 02/19/16 Cholecalciferol (Vitamin D3) [Optimal D3] 50,000 units PO QWEEK 04/13/17 hydrALAZINE [Apresoline] 25 mg PO PRN PRN 02/06/18 Amitriptyline HCl [Elavil] 25 mg PO QHS #30 tab 02/09/18 Following Prescrptions Were Given to Patient: Amitriptyline HCl [Elavil] 25 mg PO QHS #30 tab Primary Care Physician: Aleyda Pinto, [facility] [Primary Care Provider] - Please follow up with your Primary Care Physician in: 1 week Please Follow Up With: Adalberto Alvarez MD When: 2-4 weeks Disposition: Home Minutes spent on discharge:: 30 Patient Condition:: Good Medical Necessity - Tobacco Use Smoking Status: Never smoker Tobacco Use: Non-smoker Meaningful Use Info Meaningful Use Diagnoses (Choose all that apply): None applicable Code Visit OBSV E&M: 78933 Observation care discharge
--- NOTE | 2018-02-09 15:42 | PCM.WORK.EX ---
Work/School Excuse Work/School Excuse for:: Patient Please excuse this person from:: Work From: 02/06/18 through: 02/10/18
--- NOTE | 2018-02-09 17:46 | NURSING ---
Spoke with Dr Wooten this AM regarding ASA. Dr Alvarez had noted pt to be on 325 ASA & pt is on 81. MD stated she would verify w/Dr Alvarez. Waited for verification before giving medication. Pt was not discharged home on ASA, discussed w/Dr Wooten, stated she does not need it since stroke work up was negative.
[2018-02-12 16:09] LABS: Dilute Russell Viper Venom 37.8 sec (0.0-47.0); PTT-LA 31.4 sec (0.0-51.9); Protein C Antigen 87 % (60-150); Protein C, Functional 120 % (73-180); Thrombin Time 16.5 sec (0.0-23.0); dPT Confirm Ratio 1.08 Ratio (0.00-1.40)
[2018-02-13 11:58] LABS: Anti-Cardiolipin Ab, IgG, Qn < 9 GPL U/mL (0-14); Anti-Cardiolipin Ab, IgM, Qn < 9 MPL U/mL (0-12); Antithrombin 3 Function 99 % (75-135); Interpretation Comment: (.); Protein S, Free 117 % (57-157); Protein S, Funtional 110 % (63-140); Protein S, Total 81 % (60-150)
== END 2018-02-09 15:39 | disposition home or self-care (01) ==
LOC: ED 22:06 → PCU 23:53
PROVIDERS: Psychiatry & Neurology Neurology; Student in an Organized Health Care Education/Training Program; Admitting Provider Hospitalist; Emergency Provider Emergency Medicine; Family Provider Nurse Practitioner Family; PCP Nurse Practitioner Family; Visit Provider Internal Medicine
DX: R00.0 Tachycardia, unspecified (principal); E11.42 Type 2 diabetes mellitus with diabetic polyneuropathy; I10 Essential (primary) hypertension; E66.9 Obesity, unspecified; Z68.37 Body mass index [BMI] 37.0-37.9, adult; Z71.3 Dietary counseling and surveillance; R20.0 Anesthesia of skin; R42 Dizziness and giddiness; Z79.899 Other long term (current) drug therapy; Z79.84 Long term (current) use of oral hypoglycemic drugs
CPT/HCPCS: 36415; 70450; 70551; 71045; 80048; 80061; 81241; 82962; 84443; 84484; 85025; 85300; 85302; 85303; 85305; 85306; 85610; 85730; 86147; 93005; 99218; 99285; G0378

== ENCOUNTER → 2018-02-08 13:45 | Outpatient (CLI) | payer BC, SELFPAY ==
[2018-02-09 09:29] LABS: Vitamin D,25 Hydroxy 44.9 ng/mL (29.95-100.01)
== END ==
PROVIDERS: Family Provider Nurse Practitioner Family; PCP Nurse Practitioner Family; Visit Provider Family Medicine
DX: E11.9 Type 2 diabetes mellitus without complications (principal); E55.9 Vitamin D deficiency, unspecified
CPT/HCPCS: 82306; 83036

== ENCOUNTER → 2018-03-20 12:34 | Outpatient (CLI) | payer BC, SELFPAY ==
--- NOTE | 2018-03-20 12:39 | STE_ITS ---
Reason For Study: NUMBNESS Stress Results Protocol: Damien Protocol Maximum Predicted HR: 189 bpm Target HR: 161 bpm% Max imum Predicted HR: 88 % DurationHeart Rate Stage (mm:ss) (bpm) BPCom ment BASELINE 89 132/90 3CC DEFINITY STAGE 1 3:00 12 2 160/88 STAGE 2 3:00 14 6 170/92 STAGE 3 1:01 16 6 / 2 C C DEFINITY RECOVERY 110 130/9 2 Stress Duration: 7:01 mm:ss Maximum Stress HR: 166 bpmM ETS: 9 Baseline Echocardiogram Findings Stress Echo Wall motion Data Resting WMIntermediate WMStress WM Resting Wall Motion Wall Motion Stress All segments Normal. All segments Hyperkinetic. Ejection Fraction 55 %. Ejection Fraction 70 %. Stress Results Heart rate response: appropriate Blood pressure response: resting hypertension - normal response Arrhythmia: none Functional capacity: average Stopped secondary to: dyspnea; leg weakness. EKG Data The baseline ECG displays normal sinus rhythm. Peak exercise ECG: No obvious ECG changes. Symptoms with Stress No c/o chest discomfort during exercise / recovery. Interpretation Summary Negative (Adequate) Stress Echocardiogram Ordering Physician: Oly Cruz Referring Physician: Oly Cruz Performed By: Luciano Diaz RCS
== END ==
LOC: CVS 12:35
PROVIDERS: Family Provider Nurse Practitioner Family; PCP Nurse Practitioner Family; Visit Provider Nurse Practitioner Acute Care
DX: R06.02 Shortness of breath (principal); R20.0 Anesthesia of skin; R20.2 Paresthesia of skin
CPT/HCPCS: 93017; 93350; J7030; Q9957; C8928

== ENCOUNTER → 2018-04-17 09:57 | Outpatient (CLI) | payer OTHER, SELFPAY ==
--- NOTE | 2018-04-17 10:10 | MRI_ITS ---
STUDY: MRI BRAIN WITHOUT CONTRAST REASON FOR EXAM: Female, 33 years old. Numbness and tingling in the left TECHNIQUE: Standardized multiplanar fat and water weighted pulse sequences were obtained. COMPARISON: MR brain February 07, 2018 FINDINGS: Normal size of the ventricles and extra-axial spaces for the patient's age. Normal white matter tracts of the supratentorial brain. There is no evidence for recent intracranial ischemia or other cause of cytotoxic edema on diffusion weighted imaging (DWI). Isolated focus of T2 lengthening left frontal subcortical white matter unchanged measuring approximately 6 x 8 mm in greatest transverse dimensions. Normal bilateral basal ganglia. Normal thalami. There is no extra-axial fluid accumulation. Normal flow voids within the major intracranial circulation suggesting patency by spin echo criteria. Normal sella turcica, pituitary gland, infundibular stalk, optic chiasm and hypothalamus. Normal tectal plate and pineal gland. Normal midbrain, kelly and medulla. Normal cerebellum. Normal basal cisterns. Normal bilateral temporal bones. Normal bilateral internal auditory canals. No demonstrated orbital abnormality, within the constraints of a routine brain study. Normal visualized paranasal sinuses. Normal calvarium and skull base. Normal visualized soft tissue structures. Normal visualized upper cervical spine. MRI/Brain without Contrast IMPRESSION: Stable nonspecific left frontal white matter lesion. Differential considerations include demyelination. Electronically Signed: Brice Saunders MD at 0:04 EDT , Service support ,
== END ==
LOC: MRI 10:04
PROVIDERS: Family Provider Nurse Practitioner Family; PCP Nurse Practitioner Family; Visit Provider Nurse Practitioner Acute Care
DX: R20.2 Paresthesia of skin (principal); R20.0 Anesthesia of skin
CPT/HCPCS: 70551

== ENCOUNTER → 2018-04-28 09:37 | Outpatient (CLI) | payer OTHER, SELFPAY ==
--- NOTE | 2018-04-28 | CYSPIN_PTH ---
PATIENT: MARIE JOE LOC: [facility] U#:[id number] AGE/SX: 40/F ROOM: RE04/28/[address]: PALLAVI Moore : 1985 BED: DIS: SPEC #: [id number] RECD: 04/28/18 11:14 STATUS: DALIA HAN #: [id number] SHANE: 04/28/18 00:[address]: Oly Cruz NP DEPT: CYTOLOGY RECD BY: Dwight Haji ENTERED: 04/28/18 12:08 SP TYPE: CYSPIN GOVIND FINLEY DR: PALLAVI Short Tissues: Cerebrospinal Fluid Procedures: Pap Stain (control) Special Stain Group II Cytospin Fluid HEADER OPERATION: Lumbar puncture PRE-OP DIAGNOSIS: MS TISSUE SUBMITTED: Cerebrospinal fluid for cytology DIAGNOSIS CYTOLOGY Cerebrospinal fluid for cytology (cytospin): Negative for malignant cells. SJ:andrés 04/29/18 CYTOLOGY STUDY Slides are reviewed. CYTOLOGY GROSS Received is 5 ml of clear colorless fluid labeled with the patient's name and and designated per the requisition as CSF. Submitted for cytology preparation. 04/28/18 TC:5 CPT: 57395
--- NOTE | 2018-04-28 10:40 | RAD_ITS ---
CLINICAL HISTORY: Female, 33 years old. MS. paresthesia. PROCEDURE: LUMBAR PUNCTURE UNDER FLUOROSCOPIC GUIDANCE FLUOROSCOPY TIME (if supplied): (2:00) minutes/seconds, 2 images were obtained. CONSENT: The risks, benefits and alternatives to the procedure were explained to the patient, and the patient agreed to the procedure and signed the consent. SEDATION: STERILE BARRIER TECHNIQUE: The following sterile barrier precautions were used during the procedure: hand hygiene; use of 2% chlorhexidine aseptic; use of a cap, mask, sterile gown, sterile gloves, sterile full body drape, and a large sterile sheet. PROCEDURE/TECHNIQUE: The risks, benefits, and alternatives to the procedure were explained to patient, and the patient agreed to the procedure and signed a consent form for the procedure. A timeout was performed to confirm the patient's identity, the type of procedure, to be performed and the site of entry. TECHNIQUE: Under fluoroscopic guidance using sterile technique and after infiltration of the skin and subcutis soft tissues with 10 mL lidocaine 1% a 22-gauge needle is introduced in the lumbar thecal sac. The CSF opening pressures 16 cm H2O. 20 mL of clear CSF were removed and sent to lab for the for evaluation RAD/Fluoro Guided Lumbar Puncture IMPRESSION: Successful lumbar puncture. CSF opening pressures 16 CM H2O. 26 mL of clear CSF were removed. Electronically Signed: Shirlene Romero MD at 20:30 EDT Tel , Service support ,
[2018-04-28 11:15] VITALS: BP 138/97; PULSE 85; RESP 18; O2SAT 95
[2018-04-28 11:38] LABS: Cytology, Body Fluid / CSF SEE PATHOLOGY REPORT
[2018-04-28 12:00] VITALS: BP 132/72; PULSE 85; RESP 18; O2SAT 95
[2018-04-28 12:05] LABS: Body Fluid Mononuclear WBC # 0.005 10^3/uL; Total Cell Count CSF 0.005 10^3/uL (0.000-0.000); White Count, CSF 0.005 10^3/uL (0.000-0.000)
[2018-04-28 12:11] LABS: Appearance CSF (character) CLEAR (Clear); Auto B Fluid Analyzer BKGD Ct COUNTS W/IN LIMITS (W/IN LIMITS); Body Fluid QC Type(s) BF1Q; CSF Color COLORLESS (Colorless); RBC Count, Spinal Fluid 0 /mm-3 (None seen); Tested Tube # 3
[2018-04-28 12:26] LABS: Glucose Spinal Fluid 95 mg/dL (40-75)
[2018-04-28 12:30] VITALS: BP 118/86; PULSE 85; RESP 18; O2SAT 95
[2018-04-29 15:29] LABS: Pathologist Review Reviewed
[2018-05-01 16:09] LABS: Cryptococcus Antigen CSF Negative (Negative); PROEL- A/G Ratio 1.1 (0.7-1.7); PROEL- Albumin 3.9 g/dL (2.9-4.4); PROEL- Alpha-1 Globulin 0.2 g/dL (0.0-0.4); PROEL- Alpha-2 Globulin 0.7 g/dL (0.4-1.0); PROEL- Beta Globulin 1.3 g/dL (0.7-1.3); PROEL- Gamma Globulin 1.1 g/dL (0.4-1.8); PROEL- Globulin, Total 3.4 g/dL (2.2-3.9); PROEL- TOTAL PROTEIN 7.3 g/dL (6.0-8.5)
[2018-05-02 09:19] LABS: Myelin Basic Protein, MBP 2.1 ng/mL (0.0-1.2)
== END ==
PROVIDERS: Family Provider Nurse Practitioner Family; PCP Nurse Practitioner Family; Visit Provider Nurse Practitioner Acute Care
DX: G35 Multiple sclerosis (principal)
CPT/HCPCS: 62270; 77003; 82945; 83873; 84157; 84165; 87015; 87116; 87206; 87899; 88108; 88313; 89050; 89051

== ENCOUNTER → 2018-06-24 13:20 | Outpatient (CLI) | payer OTHER, SELFPAY ==
--- NOTE | 2018-06-24 13:28 | MRI_ITS ---
STUDY: MRI BRAIN WITH AND WITHOUT CONTRAST REASON FOR EXAM: Female, 33 years old. MS LESIONS, WEAKNESS, PAIN LEFT LEG AND ARM. TECHNIQUE: Standardized multiplanar fat and water weighted pulse sequences were obtained. 10 ml of Gadavist contrast material was administered intravenously for the contrast portion of the examination. COMPARISON: April 17, 2018 FINDINGS: Normal size of the ventricles and extra-axial spaces for the patient's age. Normal white matter tracts of the supratentorial brain. Again noted is the 6 x 8 mm FLAIR hyperintensity at the left frontal white matter which is stable in comparison with the prior examination. There is no enhancement. There there are no other lesions. Normal bilateral basal ganglia. Normal thalami. There is no extra-axial fluid accumulation. Normal flow voids within the major intracranial circulation suggesting patency by spin echo criteria. Normal venous enhancement. There is no enhancing intra-axial or extra-axial abnormality. Normal sella turcica, pituitary gland, infundibular stalk, optic chiasm and hypothalamus. Normal tectal plate and pineal gland. Normal midbrain, kelly and medulla. Normal cerebellum. Normal basal cisterns. Normal bilateral temporal bones. Normal bilateral internal auditory canals. MRI/Brain W/WO Contrast IMPRESSION: Stable 6 mm left frontal lesion. No other lesions. Electronically Signed: Rupali Stewart MD at 12:21 EDT Tel , Service support ,
== END ==
PROVIDERS: Family Provider Nurse Practitioner Family; PCP Nurse Practitioner Family; Visit Provider Nurse Practitioner Acute Care
DX: M79.605 Pain in left leg (principal); M79.602 Pain in left arm; R53.1 Weakness
CPT/HCPCS: 70553; A9585

== ENCOUNTER → 2018-07-09 10:29 | Outpatient (CLI) | payer OTHER, SELFPAY ==
--- NOTE | 2018-07-09 | CYSPIN_PTH ---
PATIENT: MARIE JOE LOC: [facility] U#:[id number] AGE/SX: 40/F ROOM: RE07/09/[address]: PALLAVI Moore : 1985 BED: DIS: SPEC #: [id number] RECD: 07/09/18 13:23 STATUS: DALIA REElie #: [id number] SHANE: 07/09/18 00:[address]: Oly Cruz NP DEPT: CYTOLOGY RECD BY: Gilberto Morfin ENTERED: 07/09/18 13:23 SP TYPE: CYSPIN GOVIND FINLEY DR: PALLAVI Short Tissues: Cerebrospinal Fluid Procedures: Pap Stain (control) Special Stain Group II Cytospin Fluid HEADER OPERATION: Lumbar puncture PRE-OP DIAGNOSIS: Facial paresthesia TISSUE SUBMITTED: Cerebrospinal fluid for cytology DIAGNOSIS CYTOLOGY Cerebrospinal fluid for cytology (cytospin): Negative for malignant cells. SJ:andrés 07/10/18 COMMENT Please make reference to previous specimen ([id number]), cerebrospinal fluid for cytology with diagnosis of negative for malignant cells. CYTOLOGY STUDY Slides are reviewed. The specimen is paucicellular and consists of rare mature lymphocytes. CYTOLOGY GROSS Received is 1.5 ml of clear fluid labeled with the patient's name and and designated per the requisition as CSF. Submitted for cytology preparation including. 07/09/18 TC:4 CPT: 88249
--- NOTE | 2018-07-09 10:50 | RAD_ITS ---
CLINICAL HISTORY: Female, 33 years old. Facial paresthesia. PROCEDURE: LUMBAR PUNCTURE UNDER FLUOROSCOPIC GUIDANCE FLUOROSCOPY TIME (if supplied): (0:19) minutes/seconds, 2 images were obtained. RADIATION DOSAGE (If Supplied By Facility): CTDIvol = ( ) mGy, DLP = ( ) mGycm CONSENT: The risks, benefits and alternatives to the procedure were explained to the patient, and the patient agreed to the procedure and signed the consent. SEDATION: STERILE BARRIER TECHNIQUE: The following sterile barrier precautions were used during the procedure: hand hygiene; use of 2% chlorhexidine aseptic; use of a cap, mask, sterile gown, sterile gloves, sterile full body drape, and a large sterile sheet. PROCEDURE/TECHNIQUE: The risks, benefits, and alternatives to the procedure were explained to patient, and the patient agreed to the procedure and signed a consent form for the procedure. A timeout was performed to confirm the patient's identity, the type of procedure, to be performed and the site of entry. TECHNIQUE: Under fluoroscopic guidance using sterile technique and after infiltration of the skin and subcutis soft tissues with 10 mL lidocaine 1% a 22-gauge needle is introduced in the lumbar thecal sac. The CSF opening pressures 12 cm H2O. 16 mL of clear CSF were removed and sent to lab for the for evaluation RAD/Fluoro Guided Lumbar Puncture IMPRESSION: Successful lumbar puncture. CSF opening pressures 12 CM H2O. 16 mL of clear CSF were removed. Electronically Signed: Shirlene Romero MD at 13:51 EDT Tel , Service support ,
[2018-07-09 10:58] LABS: Prothrombin Time (Protime)PT. 12.7 SECONDS (11.7-14.9)
[2018-07-09 10:59] LABS: Partial Thromboplast Time 25.3 Seconds (24.1-36.2)
[2018-07-09 11:45] VITALS: BP 124/89; PULSE 80; RESP 14; O2SAT 96; BMI 38.0
[2018-07-09 12:12] LABS: Cytology, Body Fluid / CSF SEE PATHOLOGY REPORT; Oligoclonal Banding REF LAB
[2018-07-09 12:56] LABS: Body Fluid Mononuclear WBC # 0.001 10^3/uL; Total Cell Count CSF 0.001 10^3/uL (0.000-0.000); White Count, CSF 0.001 10^3/uL (0.000-0.000)
[2018-07-09 13:00] VITALS: BP 118/83; PULSE 78; RESP 16; O2SAT 97
[2018-07-09 13:11] LABS: Glucose Spinal Fluid 69 mg/dL (40-75)
[2018-07-09 13:20] LABS: Appearance CSF (character) CLEAR (Clear); Auto B Fluid Analyzer BKGD Ct COUNTS W/IN LIMITS (W/IN LIMITS); CSF Color COLORLESS (Colorless); RBC Count, Spinal Fluid 0 /mm-3 (None seen); Tested Tube # 4
[2018-07-09 13:37] LABS: Body Fluid QC Type(s) BF1Q
[2018-07-10 15:15] LABS: Pathologist Review Reviewed
[2018-07-10 18:51] LABS: PROEL- A/G Ratio 1.3 (0.7-1.7); PROEL- Albumin 4.1 g/dL (2.9-4.4); PROEL- Alpha-1 Globulin 0.2 g/dL (0.0-0.4); PROEL- Alpha-2 Globulin 0.7 g/dL (0.4-1.0); PROEL- Beta Globulin 1.3 g/dL (0.7-1.3); PROEL- Gamma Globulin 0.9 g/dL (0.4-1.8); PROEL- Globulin, Total 3.2 g/dL (2.2-3.9); PROEL- TOTAL PROTEIN 7.3 g/dL (6.0-8.5)
[2018-07-15 03:07] LABS: CAP Mandated Culture Not Indicated (.); CSF Albumin 22 mg/dL (11-48); CSF IgG 2.3 mg/dL (0.0-8.6); CSF IgG Index 0.5 (0.0-0.7); Cryptococcus Antigen CSF Negative (Negative); HSV 1 By PCR Negative (Negative); IgG Serum 872 mg/dL (700-1600); IgG Synthesis Rate, CSF -1.3 mg/day (-9.9 TO +3.3); Serum Albumin 4.5 g/dL (3.5-5.5)
[2018-07-15 07:33] LABS: CSF:Serum Albumin Index 5 (0-8); HSV 2 By PCR Negative (Negative); Myelin Basic Protein, MBP 2.6 ng/mL (0.0-1.2); West Nile Virus, IgG CSF Negative (Negative); West Nile Virus, IgM CSF Negative (Negative)
== END ==
PROVIDERS: Family Provider Nurse Practitioner Family; PCP Nurse Practitioner Family; Referring Provider Nurse Practitioner Acute Care; Visit Provider Nurse Practitioner Acute Care
DX: G35 Multiple sclerosis (principal)
CPT/HCPCS: 36415; 62270; 77003; 82040; 82042; 82784; 82945; 83873; 83916; 84157; 84165; 85610; 85730; 86788; 86789; 87015; 87070; 87116; 87205; 87206; 87529; 87798; 87899; 88108; 88313; 89050; 89051

== ENCOUNTER → 2018-10-13 13:49 | Outpatient (CLI) | payer OTHER, SELFPAY ==
--- NOTE | 2018-10-13 13:53 | US_ITS ---
STUDY: ULTRASOUND - URINARY BLADDER REASON FOR EXAM: Female, 33 years old. Urinary frequency, diabetic TECHNIQUE: Ultrasound evaluation of the urinary bladder was performed with real-time and static young-scale imaging. COMPARISON: None. FINDINGS: There is no visualized UVJ calculus. The distended volume of the urinary bladder is 433.6 ml. The empty volume of the urinary bladder is 6.6 ml. The bladder wall is within normal limits. The bladder wall measures 10. There is no demonstrated bladder wall mass lesion. There is visualized echogenicity within the bladder which may represent sludge. Doppler ultrasound was not utilized to evaluate ureteral jets. US/Post Void Residual Bladder IMPRESSION: Allowing for the amount of distention, Thick-walled appearance of the bladder with internal debris suspicious for possible cystitis. Minimal bladder volume residual. Electronically Signed: Dianne Mcleod MD at 23:29 EST Tel , Service support ,
== END ==
LOC: US 13:50
PROVIDERS: Referring Provider Nurse Practitioner Acute Care; Visit Provider Nurse Practitioner Acute Care
DX: G81.94 Hemiplegia, unspecified affecting left nondominant side (principal); R52 Pain, unspecified; R29.6 Repeated falls
CPT/HCPCS: 51798

== ENCOUNTER → 2018-10-15 12:47 | Outpatient (CLI) | payer OTHER, SELFPAY ==
--- NOTE | 2018-10-15 12:59 | MRI_ITS ---
STUDY: MRI CERVICAL SPINE WITH AND WITHOUT CONTRAST REASON FOR EXAM: Female, 33 years old. Left-sided weakness TECHNIQUE: Standardized fat and water weighted pulse sequences were obtained in the sagittal and axial following I.V. administration of 10ML ml of Gadavist contrast material. COMPARISON: None FINDINGS: Normal foramen magnum and brainstem-cervical cord junction. Normal craniovertebral junction. Normal anterior atlantoaxial articulation. Normal odontoid process. Decreased cervical lordosis. Normal vertebral bodies and posterior osseous elements. C2-3: Normal endplates. Normal disc height, signal and morphology. Normal central canal and intervertebral neural foramina. C3-4: Normal endplates. Normal disc height, signal and tiny central disc protrusion.. Normal central canal and intervertebral neural foramina. C4-5: Normal endplates. Normal disc height, signal and tiny central disc protrusion. Normal central canal and intervertebral neural foramina. C5-6: Normal endplates. Normal disc height, signal and tiny central disc protrusion. Normal central canal and intervertebral neural foramina. C6-7: Normal endplates. Normal disc height, signal and morphology. Normal central canal and intervertebral neural foramina. C7-T1: Normal endplates. Normal disc height, signal and morphology. Normal central canal and intervertebral neural foramina. Normal cervical cord. No enhancing lesions following contrast administration. Normal visualized soft tissue structures. MRI/Spine Cervical W/WO Contrast IMPRESSION: No acute fracture or other significant bony pathology. Tiny central disc protrusions at C3-4 C4-5 and C5-6 without evidence for spinal stenosis or cord compression. No focal lesions within the cord Electronically Signed: John Smith MD at 19:23 EST , Service support ,
--- NOTE | 2018-10-15 13:00 | MRI_ITS ---
STUDY: MRI THORACIC SPINE WITH AND WITHOUT CONTRAST REASON FOR EXAM: Female, 33 years old. Left sided weakness TECHNIQUE: 10ML ml of Gadavist was administered intravenously for the contrast portion of the examination. COMPARISON: None. FINDINGS: Normal kyphosis of the thoracic spine. There is no substantial scoliosis. T1-2, T2-3, T3-4, T4-5, T5-6, T6-7, T7-8, T8-9, T9-10, T10-11, T11-12: Normal endplates. Normal disc hydration, heights and morphology of the corresponding intervertebral discs. Normal central canal and intervertebral neural foramina at the corresponding levels. Normal visualized thoracic cord. Normal conus medullaris that terminates at T12-L1. The soft tissue structures are unremarkable. There is no enhancing abnormality. MRI/Spine Thoracic W/WO Contrast IMPRESSION: Normal unenhanced and enhanced MRI examination of the thoracic spine. Electronically Signed: John Smith MD at 19:25 EST , Service support ,
[2018-10-15 15:05] LABS: Bacteria 0 SEEN /hpf (None Seen); Mucous, Urine 0 SEEN /hpf (<or=2+); Red Blood Cells-Urine 0 SEEN /hpf (0-5)
[2018-10-15 15:37] LABS: Color, Urine Yellow (Yellow); Glucose, Dipstick Normal (Normal); Ketone-Dipstick Negative (Negative); Leukocyte Esterase-Dipstick Negative /ul (Negative); Nitrite-Dipstick Negative (Negative); Occult Blood-Urine Negative /ul (Negative); Protein-Dipstick Negative (Negative); Urine Bilirubin Dipstick Negative (Negative); Urine Clarity Clear (Clear); Urine Urobilinogen Normal (Normal)
[2018-10-15 16:14] LABS: Squamous Epithelial Cells - UA 0-5 SEEN /hpf (5-10)
[2018-10-15 16:15] LABS: White Blood Cells 0-5 SEEN /hpf (0-5)
== END ==
PROVIDERS: Referring Provider Nurse Practitioner Acute Care; Visit Provider Nurse Practitioner Acute Care
DX: R53.1 Weakness (principal); R52 Pain, unspecified; R29.6 Repeated falls; R35.0 Frequency of micturition
CPT/HCPCS: 72156; 72157; 81001; 87086; 87088; A9585

== ENCOUNTER → 2018-12-02 09:50 | Outpatient (CLI) | payer OTHER, SELFPAY ==
[2018-11-17 14:27] VITALS: BMI 37.4
[2018-12-02 10:47] LABS: Absolute Lymphocyte Count 3.02 X10^3/ul (0.83-4.51); Absolute Neutrophil Count 5.3 X10^3/uL (2.0-7.7); Basophil# 0.02 X10^3/uL; Basophil% 0.2 % (0-1); Eosinophil# 0.13 X10^3/uL; Eosinophils% 1.4 % (0-5); Hematocrit 44.3 % (37-47); Hemoglobin 14.3 g/dl (12.0-15.0); Lymphocyte # 3.02 X10^3/ul (4.0); Lymphocyte % 33.4 % (19-41); Mean Corp Hgb Conc 32.3 g/gl (32-36); Mean Corpuscular Hgb 30.5 pg (27.0-32.0); Mean Corpuscular Volume 94.5 fL (81-99); Mean Platelet Vol. 9.6 fl (6.2-12.0); Monocyte% 5.5 % (0-10); Neutrophil # 5.34 X10^3/uL (2.7-7.7); Neutrophil % 59.3 % (47-70); Platelet Count 339 K/mm3 (150-450); RBC Distribution Width CV 12.9 % (11.6-14.6); RBC Distribution Width SD 44.4 fl (35.1-43.9); Red Blood Count 4.69 M/mm3 (4.2-5.4)
[2018-12-02 10:48] LABS: POSITIVE COUNT NO; POSITIVE DIFFERENTIAL NO; POSITIVE MORPHOLOGY NO
[2018-12-02 11:04] LABS: Microalbumin,Random Urine 12.3 mg/L (NO RANGE EST.); Microalbumin:Creatinine Ratio 24.7 mg/g CRE (<30 mg/g CRE)
[2018-12-02 11:11] LABS: ALB/GLOB Ratio 1.2 RATIO (0.9-2.4); AST(SGOT) 68 U/L (15-37); Alanine Aminotransfer ALT/SGPT 139 U/L (13-56); Albumin, Serum 4.3 g/dL (3.2-5.0); Alkaline Phosphatase 67 U/L (45-117); Anion Gap 10 (5-15); BUN 9 mg/dL (7-18); Calcium,Total 9.1 mg/dL (8.5-10.1); Chloride 108 mmol/L (98-107); Cholesterol 163 mg/dL (200); Creatinine, Serum 0.69 mg/dL (0.55-1.02); EST Glomerular Filtration Rate 104 mL/min (>60); Est Glom Filt Rate - Afr Amer 126 mL/min (>60); Globulin 3.6 g/dL (2.2-4.2); Glucose 133 mg/dL (74-106); High Density Lipoprotein 32 mg/dL; Potassium 4.4 mmol/L (3.5-5.1); Protein, Total 7.9 g/dL (6.4-8.2); Sodium Level 144 mmol/L (136-145); Triglycerides 128 mg/dL; Very Low Density Lipoprotein 26 mg/dL (5-40)
== END ==
LOC: LAB 09:53
PROVIDERS: Referring Provider Internal Medicine; Visit Provider Internal Medicine
DX: E11.9 Type 2 diabetes mellitus without complications (principal)
CPT/HCPCS: 36415; 80053; 80061; 82043; 82570; 85025

== ENCOUNTER 2018-12-27 21:10 | Emergency (ER) | payer OTHER, SELFPAY ==
[2018-11-17 14:27] VITALS: BMI 37.4
[2018-12-27 21:11] VITALS: BP 160/112; PULSE 110; RESP 15; TEMP 36.9; O2SAT 96; BMI 36.3
--- NOTE | 2018-12-27 22:45 | EKG12_ITS ---
Test Reason : COLD Blood Pressure : / mmHG Vent. Rate : 091 BPM Atrial Rate : 091 BPM P-R Int : 130 ms QRS Dur : 092 ms QT Int : 358 ms P-R-T Axes : 047 073 039 degrees QTc Int : 440 ms Normal sinus rhythm Normal ECG Confirmed by JUS PETERS, SHABANA ([id number]), technical writer and editor HARI ROSA ([id number]) on 12/30/2018 1:43:22 PM Referred By: KEYONNA Confirmed By:SHABANA LUU MD
--- NOTE | 2018-12-27 22:46 | ED.VIS.GEN ---
History of Present Illness Chief Complaint: Cold Sx Informant: Patient, Family Narrative: She stated she came in today because she noticed she was having heart racing. This started this afternoon. Normally her heart rate per patient is in the 90s. Tonight is been in the low 100s. This is concerned her. She is not having any palpitations or chest pain. Current severity is mild. She is not short of breath. She denies any pulmonary embolism risk factors. Her only cardiac risk factors a history of diabetes. It seems to come and go. Patient stated she is being worked up for MS. She has not had a diagnosis of this but is having chronic neuropathy that is not new. Stated of the last week she has been battling a cold. She has not been taking any stimulants. She had a runny nose and mild cough. She has had occasional fevers. Past Medical History - Allergies and Home Meds Allergies/Adverse Reactions: Allergies adhesive tape Allergy (Intermediate, Verified 12/27/18 21:15) Rash Primary Care Physician: Allison Dunbar MD [Primary Care Provider] - Prior records reviewed: Yes Past Medical History: - - Neuropathy Surgical History: no surgical history Smoking Status: Never smoker Alcohol: None Drugs: None - Family History Maternal Family History: Family History (Last Updated 11/17/18 @ 14:45 by Sharon Green) Father Cancer CVA (cerebral vascular accident) Hypertension Diabetes Mother Myocardial infarction, Onset Age: 42 Hypertension Depression Asthma CVA (cerebral vascular accident) Grandmother Breast cancer Asthma Hypertension Brother Myocardial infarction Aunt Multiple sclerosis Family History: Reports: No pertinent history Paternal Family History: Family History (Last Updated 11/17/18 @ 14:45 by Sharon Green) Father Cancer CVA (cerebral vascular accident) Hypertension Diabetes Mother Myocardial infarction, Onset Age: 42 Hypertension Depression Asthma CVA (cerebral vascular accident) Grandmother Breast cancer Asthma Hypertension Brother Myocardial infarction Aunt Multiple sclerosis Family History: Reports: No pertinent history Review of Systems General: Reports: Fever. Denies: Chills, Sweats Eyes: Denies: Visual changes - bilaterally, Diplopia ENT: Denies: Rhinorrhea, Sore throat Cardiovascular: Reports: Heart racing. Denies: Chest pain, Palpitations Respiratory: Reports: Cough. Denies: Dyspnea, Dyspnea on exertion Gastrointestinal: Denies: Abdominal pain, Nausea, Vomiting, Diarrhea, Melena, Hematochezia Genitourinary: Denies: Dysuria, Hematuria, Frequency Musculoskeletal: Denies: Back pain, Extremity Pain Skin: Denies: Rash, Wounds Neurological: Reports: Numbness - This is chronic. Denies: Headache, Weakness Physical Exam Vital Signs/Narrative: Vital Signs Temp Pulse Resp BP Pulse Ox 12/27/18 21:11 98.4 F 110 H 15 160/112 H 96 General: Well nourished, Well developed, No Acute Distress Head: Normocephalic, Atraumatic Eyes: Perrl, EOMI ENT: Moist mucous membranes, No rhinorrhea Neck: Supple, Nontender Cardiovascular: Regular rhythm, No murmurs, Tachycardia. Negative for: Regular rate Respiratory: No distress, CTA bilaterally, Chest nontender Abdomen: Soft, Nontender, Nondistended, Normal bowel sounds Back: Nontender, Normal Inspection Extremities: Nontender, No edema Skin: Normal color, No rash Neurological: Alert, Oriented x3, Cranial nerves II-XII grossly intact, Normal Strength, Normal Sensation Psychological: Normal affect, Normal Mood Diagnostic/Tx/Re-eval - Medical Decision Making Patient's lab work shows a very slight leukocytosis. Heart enzymes are negative. EKG is normal. At this time patient is having no tachycardia. Heart rate is 90 on her EKG. There is no ischemic findings. I feel she can follow-up as an outpatient. I do not think she had a PE or dissection or acute coronary syndrome. ED Disposition - Plan for ED Patient: Disposition: Home or Assisted Living Diagnosis: Sinus tachycardia Instructions: ED Palpitations Referrals: Allison Dunbar MD [Primary Care Provider] -
[2018-12-27 22:58] VITALS: BP 155/104; PULSE 100; RESP 20; O2SAT 95
[2018-12-27 23:20] LABS: Absolute Neutrophil Count 7.5 X10^3/uL (2.0-7.7); Basophil# 0.02 X10^3/uL; Basophil% 0.2 % (0-1); Eosinophil# 0.11 X10^3/uL; Eosinophils% 0.8 % (0-5); Hematocrit 41.4 % (37-47); Lymphocyte % 34.3 % (19-41); Mean Corp Hgb Conc 33.8 g/gl (32-36); Mean Corpuscular Hgb 30.6 pg (27.0-32.0); Mean Corpuscular Volume 90.6 fL (81-99); Mean Platelet Vol. 9.6 fl (6.2-12.0); Monocyte# 0.93 X10^3/uL; Monocyte% 7.1 % (0-10); Neutrophil # 7.53 X10^3/uL (2.7-7.7); Neutrophil % 57.4 % (47-70); POSITIVE COUNT NO; POSITIVE DIFFERENTIAL NO; POSITIVE MORPHOLOGY NO; Platelet Count 326 K/mm3 (150-450); RBC Distribution Width CV 12.8 % (11.6-14.6); Red Blood Count 4.57 M/mm3 (4.2-5.4); White Blood Count 13.1 K/mm3 (4.4-11.0)
[2018-12-27 23:36] LABS: Anion Gap 10 (5-15); BUN 10 mg/dL (7-18); BUN/Creat Ratio 13.9 RATIO (10-20); Calcium,Total 9.2 mg/dL (8.5-10.1); Chloride 105 mmol/L (98-107); Creatinine, Serum 0.72 mg/dL (0.55-1.02); EST Glomerular Filtration Rate 100 mL/min (>60); Est Glom Filt Rate - Afr Amer 121 mL/min (>60); Estimated Creatinine Clearance 105.98 ml/min; Glucose 104 mg/dL (74-106); Potassium 3.7 mmol/L (3.5-5.1); Sodium Level 139 mmol/L (136-145)
[2018-12-27 23:47] VITALS: BP 147/100; PULSE 97; RESP 17; O2SAT 95
== END 2018-12-27 23:58 | disposition home or self-care (01) ==
PROVIDERS: Emergency Provider Emergency Medicine; Family Provider Internal Medicine; PCP Internal Medicine
DX: R00.0 Tachycardia, unspecified (principal); E11.9 Type 2 diabetes mellitus without complications; Z79.84 Long term (current) use of oral hypoglycemic drugs
CPT/HCPCS: 80048; 84484; 85025; 93005; 99284; A4216

== ENCOUNTER → 2019-06-29 | Outpatient (CLI) | payer OTHER, SELFPAY ==
[2019-03-11 11:13] VITALS: BMI 37.5
[2019-06-29 12:52] LABS: Hemoglobin A1c 6.6 % (4.2-6.3)
[2019-06-29 12:56] LABS: AST(SGOT) 30 U/L (15-37); Alanine Aminotransfer ALT/SGPT 79 U/L (13-56); Albumin, Serum 3.7 g/dL (3.2-5.0); Alkaline Phosphatase 66 U/L (45-117); Anion Gap 6 (5-15); BUN 11 mg/dL (7-18); BUN/Creat Ratio 16.8 RATIO (10-20); Calcium,Total 8.6 mg/dL (8.5-10.1); Chloride 105 mmol/L (98-107); Creatinine, Serum 0.65 mg/dL (0.55-1.02); EST Glomerular Filtration Rate 111 mL/min (>60); Est Glom Filt Rate - Afr Amer 135 mL/min (>60); Globulin 3.8 g/dL (2.2-4.2); Glucose 129 mg/dL (74-106); Potassium 4.1 mmol/L (3.5-5.1); Protein, Total 7.5 g/dL (6.4-8.2); Sodium Level 137 mmol/L (136-145)
== END | disposition home or self-care (01) ==
PROVIDERS: Nurse Practitioner Family; Family Provider Internal Medicine; PCP Internal Medicine; Visit Provider Internal Medicine
DX: E11.9 Type 2 diabetes mellitus without complications (principal); I10 Essential (primary) hypertension
CPT/HCPCS: 36415; 80053; 83036

== ENCOUNTER → 2019-07-01 | Outpatient (CLI) | payer OTHER, SELFPAY ==
[2019-07-01 11:13] VITALS: BMI 37.5
[2019-07-01 14:31] LABS: Microalbumin,Random Urine 7.8 mg/L (NO RANGE EST.)
== END | disposition home or self-care (01) ==
LOC: BIMLAB 11:44
PROVIDERS: Family Provider Internal Medicine; PCP Internal Medicine; Visit Provider Nurse Practitioner Family
DX: E11.9 Type 2 diabetes mellitus without complications (principal); I10 Essential (primary) hypertension
CPT/HCPCS: 82043; 82570

== ENCOUNTER 2019-07-28 15:59 | Emergency (ER) | payer OTHER, SELFPAY ==
[2019-07-01 11:13] VITALS: BMI 37.5
[2019-07-28 15:59] VITALS: BP 147/102; PULSE 120; RESP 18; O2SAT 96
[2019-07-28 16:00] VITALS: BP 147/102; PULSE 120; RESP 18; TEMP 37.1; O2SAT 96; BMI 36.0
--- NOTE | 2019-07-28 18:32 | RAD_ITS ---
STUDY: X-RAY CHEST REASON FOR EXAM: Female, 34 years old. Chest pain TECHNIQUE: PA and lateral views of the chest COMPARISON: X-ray chest February 06, 2018 FINDINGS: The lungs are clear. There are no pleural effusions. There is no pneumothorax. The heart is normal in size. The visualized osseous structures are within normal limits. RAD/Chest PA and Lateral IMPRESSION: No acute thoracic pathology. Electronically Signed: John Salvador, at 18:51 EDT Tel , Service support ,
[2019-07-28 18:50] LABS: Absolute Lymphocyte Count 3.59 X10^3/uL (0.83-4.51); Absolute Neutrophil Count 7.7 X10^3/uL (2.0-7.7); Basophil# 0.03 X10^3/uL; Basophil% 0.2 % (0-1); Eosinophils% 0.8 % (0-5); Hematocrit 44.3 % (37-47); Hemoglobin 14.4 g/dL (12.0-15.0); Lymphocyte # 3.59 X10^3/ul (4.0); Lymphocyte % 29.6 % (19-41); Mean Corp Hgb Conc 32.5 g/dL (32-36); Mean Corpuscular Hgb 30.3 pg (27.0-32.0); Mean Corpuscular Volume 93.3 fL (81-99); Mean Platelet Vol. 9.4 fl (6.2-12.0); Monocyte# 0.65 X10^3/uL; Monocyte% 5.4 % (0-10); NRBC Flagged by Analyzer 0 % (0-5); Neutrophil # 7.71 X10^3/uL (2.7-7.7); Neutrophil % 63.8 % (47-70); Platelet Count 339 K/mm3 (150-450); RBC Distribution Width CV 12.3 % (11.6-14.6); RBC Distribution Width SD 42.1 fl (35.1-43.9); Red Blood Count 4.75 M/mm3 (4.2-5.4); White Blood Count 12.1 K/mm3 (4.4-11.0)
[2019-07-28 18:55] LABS: Internal QC Validated? YES +Cl - CLEAR BKGD; International Normalized Ratio 1.1; Pregnancy, Serum, hCG Quali. NEGATIVE Negative; Prothrombin Time (Protime)PT. 13.5 SECONDS (11.7-14.9)
[2019-07-28 18:56] LABS: Partial Thromboplast Time 25.3 Seconds (24.1-36.2)
--- NOTE | 2019-07-28 19:01 | ED.DCSUM_ITS ---
History of Present Illness Chief Complaint: Numb/Ting Informant: Patient Onset: Today Current Severity: Mild Maximum Severity: Moderate Narrative: Patient presents with left sided paresthesias and weakness. She states that started around 130 this afternoon when her left face became numb. This progressed to the entire left side of her body. She states she had difficulty walking and had difficulty making a fist on her left. At this time symptoms are almost completely resolved. Patient states she has had similar episodes in the past. She has had extensive work-ups including multiple MRIs and spinal taps without definitive cause. She is about to see a new neurologist in [place]. At the time of my exam blood work is already pending. She states she feels improved and really just needs a work note for today and is comfortable going home. Past Medical History - Allergies and Home Meds Allergies/Adverse Reactions: Allergies adhesive tape Allergy (Intermediate, Verified 03/11/19 11:11) Rash Primary Care Physician: Allison Dunbar MD [Primary Care Provider] - Chad Sandoval MD [STAFF PHYSICIAN] - As soon as possible Prior records reviewed: Yes Past Medical History: - - Reviewed Surgical History: no surgical history Lives: With Family Smoking Status: Never smoker - Family History Maternal Family History: Family History (Last Reviewed 03/11/19 @ 11:12 by Vicky Escobar) Father Cancer CVA (cerebral vascular accident) Hypertension Diabetes Mother Myocardial infarction, Onset Age: 42 Hypertension Depression Asthma CVA (cerebral vascular accident) Grandmother Breast cancer Asthma Hypertension Brother Myocardial infarction Aunt Multiple sclerosis Family History: Reports: No pertinent history Paternal Family History: Family History (Last Reviewed 03/11/19 @ 11:12 by Vicky Escobar) Father Cancer CVA (cerebral vascular accident) Hypertension Diabetes Mother Myocardial infarction, Onset Age: 42 Hypertension Depression Asthma CVA (cerebral vascular accident) Grandmother Breast cancer Asthma Hypertension Brother Myocardial infarction Aunt Multiple sclerosis Family History: Reports: No pertinent history Review of Systems General: Denies: Chills, Fever Eyes: Denies: Visual changes - bilaterally ENT: Denies: Bilateral ear pain Cardiovascular: Denies: Chest pain Respiratory: Denies: Dyspnea, Cough Gastrointestinal: Denies: Abdominal pain, Nausea, Vomiting, Diarrhea Genitourinary: Denies: Dysuria Musculoskeletal: Denies: Extremity Pain Skin: Denies: Rash Neurological: Reports: Weakness, Parasthesia Hematologic: Denies: Easy bruising Allergy: Denies: Uticaria Physical Exam Vital Signs/Narrative: Vital Signs Temp Pulse Resp BP Pulse Ox 07/28/19 16:00 98.8 F 120 H 18 147/102 H 96 07/28/19 15:59 120 H 18 147/102 H 96 Inital Vital Signs reviewed: Yes General: Well nourished, Well developed Head: Normocephalic Eyes: Perrl, EOMI ENT: Moist mucous membranes Neck: Supple Cardiovascular: Regular rate, Regular rhythm Respiratory: No distress, CTA bilaterally Abdomen: Soft, Nontender, Normal bowel sounds Back: Nontender Extremities: Nontender, No edema Skin: Normal color, No rash Neurological: Alert, Oriented x3, Normal Strength, - - Patient still reports mild decreased sensation to touch in her left face, but it is improving. Psychological: Normal affect Diagnostic/Tx/Re-eval Impressions Chest X-Ray 07/28/19 18:32 IMPRESSION: No acute thoracic pathology. Electronically Signed: John Salvador, at 18:51 EDT Tel , Service support , 07/28/19 18:32 Chest PA and Lateral [RAD] Stat Laboratory Results 07/28/19 07/28/19 07/28/19 18:10 18:10 18:10 WBC 12.1 H RBC 4.75 Hgb 14.4 Hct 44.3 MCV 93.3 MCH 30.3 MCHC 32.5 RDW Std Deviation 42.1 RDW Coeff of Jason 12.3 Plt Count 339 MPV 9.4 Immature Gran % (Auto) 0.200 Neut % (Auto) 63.8 Lymph % (Auto) 29.6 [place] % (Auto) 5.4 Eos % (Auto) 0.8 Baso % (Auto) 0.2 Absolute Neuts (auto) 7.7 Absolute Lymphs (auto) 3.59 Nucleated RBC % 0 PT 13.5 INR 1.1 APTT 25.3 Sodium 139 Potassium 4.0 Chloride 105 Carbon Dioxide 29.0 Anion Gap 5 BUN 9 Creatinine 0.66 Estim Creat Clear Calc 114.56 Est GFR (MDRD) Af Amer 134 Est GFR (MDRD) Non-Af 111 BUN/Creatinine Ratio 13.7 Glucose 106 Calcium 9.5 Serum , Qual 07/28/19 18:10 WBC RBC Hgb Hct MCV MCH MCHC RDW Std Deviation RDW Coeff of Jason Plt Count MPV Immature Gran % (Auto) Neut % (Auto) Lymph % (Auto) [place] % (Auto) Eos % (Auto) Baso % (Auto) Absolute Neuts (auto) Absolute Lymphs (auto) Nucleated RBC % PT INR APTT Sodium Potassium Chloride Carbon Dioxide Anion Gap BUN Creatinine Estim Creat Clear Calc Est GFR (MDRD) Af Amer Est GFR (MDRD) Non-Af BUN/Creatinine Ratio Glucose Calcium Serum , Qual NEGATIVE - Medical Decision Making Patient requested discharge prior to her labs even returning. She states that she has had multiple episodes similar to this with extensive work-up and no definitive cause. She does not want further evaluation at this time. ED Disposition - Plan for ED Patient: Disposition: Home or Assisted Living Diagnosis: Paresthesia Instructions: Paraesthesias Referrals: Allison Dunbar MD [Primary Care Provider] - Chad Sandoval MD [STAFF PHYSICIAN] - As soon as possible
[2019-07-28 19:02] LABS: Anion Gap 5 (5-15); BUN 9 mg/dL (7-18); BUN/Creat Ratio 13.7 RATIO (10-20); Calcium,Total 9.5 mg/dL (8.5-10.1); Chloride 105 mmol/L (98-107); Creatinine, Serum 0.66 mg/dL (0.55-1.02); EST Glomerular Filtration Rate 111 mL/min (>60); Est Glom Filt Rate - Afr Amer 134 mL/min (>60); Estimated Creatinine Clearance 114.56 ml/min; Glucose 106 mg/dL (74-106); Sodium Level 139 mmol/L (136-145)
[2019-07-28 19:16] VITALS: BP 142/86; RESP 17
--- NOTE | 2019-07-28 19:16 | ED.RN ---
IV DC'ED, CATHETER INTACT, SMALL GAUZE DRESSING PLACED. DISCHARGE INSTRUCTIONS GIVEN TO AND REVIEWED WITH PATIENT, PATIENT DENIES QUESTIONS OR CONCERNS AND VOICES UNDERSTANDING OF DISCHARGE INSTRUCTIONS. PT AMBULATES OUT OF ROOM WITHOUT DIFFICULTY.
== END 2019-07-28 19:17 | disposition home or self-care (01) ==
PROVIDERS: Emergency Provider Emergency Medicine; Family Provider Internal Medicine; PCP Internal Medicine
DX: R20.2 Paresthesia of skin (principal)
CPT/HCPCS: 71046; 80048; 84703; 85025; 85610; 85730; 99283; A4216

== ENCOUNTER → 2019-10-14 08:51 | Outpatient (CLI) | payer BC, SELFPAY ==
[2019-10-13 15:46] VITALS: BMI 36.0
[2019-10-14 09:46] LABS: Hemoglobin A1c 7.3 % (4.2-6.3)
[2019-10-14 09:56] LABS: AST(SGOT) 48 U/L (15-37); Alanine Aminotransfer ALT/SGPT 133 U/L (13-56); Albumin, Serum 3.9 g/dL (3.2-5.0); Alkaline Phosphatase 60 U/L (45-117); Anion Gap 5 (5-15); BUN 7 mg/dL (7-18); BUN/Creat Ratio 10.8 RATIO (10-20); Calcium,Total 9.1 mg/dL (8.5-10.1); Chloride 105 mmol/L (98-107); Cholesterol 158 mg/dL (200); Creatinine, Serum 0.65 mg/dL (0.55-1.02); EST Glomerular Filtration Rate 112 mL/min (>60); Est Glom Filt Rate - Afr Amer 135 mL/min (>60); Glucose 127 mg/dL (74-106); High Density Lipoprotein 35 mg/dL; Protein, Total 7.9 g/dL (6.4-8.2); Sodium Level 138 mmol/L (136-145); Thyroid Stim Hormone (TSH) 1.93 uIU/mL (0.358-3.74); Triglycerides 168 mg/dL; Very Low Density Lipoprotein 34 mg/dL (5-40)
== END ==
PROVIDERS: Family Provider Internal Medicine; PCP Internal Medicine; Referring Provider Nurse Practitioner Family; Visit Provider Nurse Practitioner Family
DX: E11.9 Type 2 diabetes mellitus without complications (principal); I10 Essential (primary) hypertension; K76.0 Fatty (change of) liver, not elsewhere classified
CPT/HCPCS: 36415; 80053; 80061; 83036; 84443

== ENCOUNTER → 2019-11-01 08:46 | Outpatient (CLI) | payer BC, SELFPAY ==
[2019-10-13 15:46] VITALS: BMI 36.0
--- NOTE | 2019-11-01 08:47 | US_ITS ---
STUDY: ABDOMINAL ULTRASOUND - RIGHT UPPER QUADRANT REASON FOR VISIT: Female, 34 years old ELEVEVATED LFT''S TECHNIQUE: Ultrasound evaluation of the right upper quadrant was performed with real-time and static young-scale imaging. TECHNICAL QUALITY: Adequate. COMPARISON: None. FINDINGS: Liver: The liver measures 17.9 cm. There is increased echogenicity consistent with fatty infiltration. The bile ducts are within normal limits. There is hepatic color flow. The direction of portal flow is hepatopetal. There is no demonstrated mass lesion. Gallbladder: Normal distended gallbladder. The gallbladder wall measures 2.3 mm. There is a negative sonographic Espinosa''s sign. There is no pericholecystic fluid. There is a 1.6 cm x 1.8 cm gallstone in the neck of the gallbladder. Common Bile Duct (C.B.D.): The common bile duct measures 2.3 mm. Pancreas: Normal size of the head, body and tail of the pancreas. There is normal echogenicity of the pancreas. There is no demonstrated pancreatic mass or cyst. Right Kidney: Normal size of the right kidney. The right kidney measures 13.9 cm x 5.3 cm x 4.6 cm. Normal renal cortex. The right cortex measures 1.8 cm. There is no demonstrated renal mass or cyst. There is no right hydronephrosis. US/Abdomen Limited IMPRESSION: Fatty infiltration of the liver. Solitary gallstone in the neck of the gallbladder. Electronically Signed: Norbert Flores, at 13:30 EST , Service support ,
== END ==
LOC: US 08:47
PROVIDERS: PCP Internal Medicine; Referring Provider Nurse Practitioner Family; Visit Provider Nurse Practitioner Family
DX: R94.5 Abnormal results of liver function studies (principal)
CPT/HCPCS: 76705

== ENCOUNTER → 2019-11-04 | Outpatient (CLI) | payer BC, SELFPAY ==
[2019-10-13 15:46] VITALS: BMI 36.0
[2019-11-05 10:30] LABS: Hepatitis B Surface Antigen Non-Reactive (Nonreactive); Hepatitis C Antibody Non-Reactive (Nonreactive)
== END | disposition home or self-care (01) ==
LOC: LAB 13:36
PROVIDERS: PCP Internal Medicine; Referring Provider Nurse Practitioner Family; Visit Provider Nurse Practitioner Family
DX: R94.5 Abnormal results of liver function studies (principal)
CPT/HCPCS: 36415; 86803; 87340

== ENCOUNTER → 2019-11-30 | Outpatient (CLI) | payer BC, SELFPAY ==
[2019-10-13 15:46] VITALS: BMI 36.0
--- NOTE | 2019-11-30 12:11 | RAD_ITS ---
STUDY: X-RAY - LUMBOSACRAL SPINE REASON FOR EXAM: Female, 34 years old. lt leg pain. TECHNIQUE: 7 view(s) of the lumbosacral spine were obtained. COMPARISON: None FINDINGS: Normal lumbar lordosis. There is no substantial scoliosis. There is normal alignment of the vertebrae. There is mild, multilevel endplate spondylosis of the lumbar vertebrae. Normal disc space heights. No pars defect. No acute fracture. Normal bilateral sacral ala, sacroiliac joints, and visualized sacrum. Normal visualized soft tissue structures. RAD/L/S Spine Comp/w Bending Views IMPRESSION: Mild multilevel spondylosis otherwise normal x-ray examination of the lumbosacral spine. No acute fracture, spondylolisthesis or pars defect. Electronically Signed: Thu Butcher MD at 4:15 EST , Service support ,
== END | disposition home or self-care (01) ==
LOC: RAD 12:09
PROVIDERS: PCP Internal Medicine; Referring Provider Psychiatry & Neurology Neurology; Visit Provider Psychiatry & Neurology Neurology
DX: M54.16 Radiculopathy, lumbar region (principal)
CPT/HCPCS: 72114

== ENCOUNTER 2019-12-15 21:58 | Emergency (ER) | payer BC, SELFPAY ==
[2019-10-13 15:46] VITALS: BMI 36.0
[2019-12-15 22:00] VITALS: BP 129/86; PULSE 129; RESP 18; TEMP 36.9; O2SAT 95; BMI 36.3
--- NOTE | 2019-12-15 22:44 | RAD_ITS ---
STUDY: X-RAY CHEST REASON FOR EXAM: Female, 34 years old. FEVER, COUGH, RUNNY NOSE AND NAUSEA TECHNIQUE: Frontal and lateral views of the chest. COMPARISON: July 28, 2019 FINDINGS: The lungs are clear and expanded. There is no demonstrated pleural abnormality. Normal size heart. Normal mediastinum and álvaro. Normal visualized pulmonary arteries. Normal visualized aortic arch and descending thoracic aorta. Normal visualized thoracic spine. Normal visualized ribs, clavicles, and shoulders. There is no demonstrated abnormality of the visualized soft tissue structures of the upper abdomen. RAD/Chest PA and Lateral IMPRESSION: Normal x-ray examination of the chest. Electronically Signed: Brice Saunders MD at 23:06 EDT , Service support ,
[2019-12-15] MEDS: Ondansetron ODT 4 MG Tablet PO (22:50)
--- NOTE | 2019-12-15 23:16 | ED.DCSUM_ITS ---
- ER Visit Summary Date of Service: 12/15/19 Chief Complaint: Cough and fever History of Present Illness: The patient is a [address] Dunbar. She reports that she has a cough and fever that began 2 days ago. Her temperatures been up to 103.6 degrees. She has a sore throat is 3 of 10 severity. She has had clear rhinorrhea. Reports she has had mild difficulty breathing and has been wheezing. She has an inhaler that she uses. Her cough is productive green sputum without blood. She reports she has been nauseated and has vomited twice. No blood or emesis. She complains of generalized weakness and a headache is 5- 10 in severity. She did not get a flu shot this year. Physical Examination: Vitals: Stable. Afebrile. General: Well-nourished and well-developed. Head: Normocephalic atraumatic. Neck: Supple, no lymphadenopathy. No JVD. Nontender. Cardiovascular: Regular rate and rhythm. No murmurs. Respiratory: No respiratory distress. Clear to auscultation bilaterally. Abdominal: Soft, nontender, nondistended, normal bowel sounds. No guarding, rebound, or peritoneal signs. Back: Nontender. Extremities: Nontender, no edema. Skin: Normal color, no rash. Neurologic: Alert and oriented ?3. Cranial nerves II through XII are intact. Normal strength and sensation. Psych: Normal affect. Test Results: Clinical Impression(s) from Imaging Studies Chest X-Ray 12/15/19 22:44 IMPRESSION: Normal x-ray examination of the chest. Electronically Signed: Brice Saunders MD at 23:06 EDT , Service support , Emergency Department Course and Treatment: Discussed the patient that she likely does have influenza. She does not want a influenza test. We discussed the indications for Tamiflu. She does not want to be placed on Tamiflu. She was given Zofran. She refused Tylenol and ibuprofen. Treatment Plan: Patient be discharged with symptomatic care. She is given a prescription for Zofran for nausea. Instructed to push fluids. Use Tylenol and/or ibuprofen for fever and myalgias. Follow-up with her primary care physician 1 week if not improving. Return to the emergency department for any worsening symptoms. Disposition: To home in improved and stable condition. Impression: 1 1. Influenza. This note was generated with [employer] dictation software. It may contain incorrect words, spelling, and punctuation that were not noted in review of the chart prior to signing ED Disposition - Plan for ED Patient: Disposition: Home or Assisted Living Instructions: INFLUENZA (Adult) Prescriptions: Ondansetron [Zofran Odt] 4 mg PO Q8H PRN PRN #10 tab PRN Reason: Nausea Prescription Printed Referrals: Allison Dunbar MD [Primary Care Provider] - 1 Week if not improving
== END 2019-12-15 23:49 | disposition home or self-care (01) ==
LOC: ED 23:32
PROVIDERS: Emergency Provider Emergency Medicine; PCP Internal Medicine
DX: J11.1 Influenza due to unidentified influenza virus with other respiratory manifestations (principal); E11.9 Type 2 diabetes mellitus without complications; I10 Essential (primary) hypertension
CPT/HCPCS: 71046; 99283

== ENCOUNTER → 2020-03-23 | Outpatient (CLI) | payer BC, SELFPAY ==
[2020-01-28 13:55] VITALS: BMI 36.3
[2020-03-23 15:51] LABS: Hemoglobin A1c 6.6 % (3.8-5.6)
[2020-03-23 15:54] LABS: AST(SGOT) 59 U/L (15-37); Alanine Aminotransfer ALT/SGPT 120 U/L (13-56); Alkaline Phosphatase 68 U/L (45-117); Anion Gap 8 (5-15); BUN 11 mg/dL (7-18); BUN/Creat Ratio 14.6 RATIO (10-20); Calcium,Total 9.1 mg/dL (8.5-10.1); Chloride 102 mmol/L (98-107); Creatinine, Serum 0.75 mg/dL (0.55-1.02); EST Glomerular Filtration Rate 94 mL/min (>60); Est Glom Filt Rate - Afr Amer 114 mL/min (>60); Globulin 3.9 g/dL (2.2-4.2); Glucose 115 mg/dL (74-106); Potassium 4.1 mmol/L (3.5-5.1); Protein, Total 7.9 g/dL (6.4-8.2); Sodium Level 138 mmol/L (136-145)
== END | disposition home or self-care (01) ==
LOC: BIMLAB 13:55
PROVIDERS: PCP Internal Medicine; Visit Provider Nurse Practitioner Family
DX: E11.9 Type 2 diabetes mellitus without complications (principal); I10 Essential (primary) hypertension; K76.0 Fatty (change of) liver, not elsewhere classified
CPT/HCPCS: 36415; 80053; 83036

== ENCOUNTER 2020-12-07 21:56 | Emergency (ER) | payer OTHER, SELFPAY ==
[2020-01-28 13:55] VITALS: BMI 36.3
[2020-12-07 21:57] VITALS: BP 141/84; PULSE 122; RESP 20; TEMP 35.8; O2SAT 98; BMI 37.7
[2020-12-07 22:01] VITALS: BP 132/87; PULSE 123; RESP 26; TEMP 35.8; O2SAT 98
--- NOTE | 2020-12-07 22:04 | EKG12_ITS ---
Test Reason : CP Blood Pressure : / mmHG Vent. Rate : 121 BPM Atrial Rate : 121 BPM P-R Int : 142 ms QRS Dur : 098 ms QT Int : 328 ms P-R-T Axes : 070 089 025 degrees QTc Int : 465 ms Sinus tachycardia Otherwise normal ECG Confirmed by JUS PETERS, SHABANA ([id number]), photographic editor HARI ROSA ([id number]) on 12/11/2020 2:43:29 PM Referred By: TRISTAN Confirmed By:SHABANA LUU MD
[2020-12-07 22:17] LABS: Absolute Lymphocyte Count 5.97 X10^3/uL (0.83-4.51); Absolute Neutrophil Count 6.8 X10^3/uL (2.0-7.7); Basophil# 0.06 X10^3/uL; Basophil% 0.4 % (0-1); Eosinophil# 0.13 X10^3/uL; Eosinophils% 0.9 % (0-5); Hematocrit 43.3 % (37-47); Hemoglobin 14.2 g/dL (12.0-15.0); Lymphocyte # 5.97 X10^3/ul (4.0); Lymphocyte % 43.6 % (19-41); Mean Corp Hgb Conc 32.8 g/dL (32-36); Mean Corpuscular Hgb 30.3 pg (27.0-32.0); Mean Corpuscular Volume 92.5 fL (81-99); Monocyte# 0.69 X10^3/uL; NRBC Flagged by Analyzer 0 % (0-5); Neutrophil % 49.7 % (47-70); POSITIVE DIFFERENTIAL YES; POSITIVE MORPHOLOGY YES; Platelet Count 325 K/mm3 (150-450); RBC Distribution Width SD 41.1 fl (35.1-43.9); Red Blood Count 4.68 M/mm3 (4.2-5.4); White Blood Count 13.7 K/mm3 (4.4-11.0)
[2020-12-07] MEDS: 0.9% Normal Saline 1,000 ML 1000 ML IV (22:19)
[2020-12-07] MEDS: diazePAM 5 MG Tablet PO (22:19)
[2020-12-07 22:23] LABS: Differential Indicated SCAN CRITERIA MET
--- NOTE | 2020-12-07 22:23 | RAD_ITS ---
STUDY: X-RAY CHEST REASON FOR EXAM: Female, 35 years old. Shortness of breath. Nausea 2140 tonight. Dizziness and numbness. Tingling in the legs and hands. Patient took CBD cannot be 40 minutes prior to symptoms. TECHNIQUE: Single AP portable view of the chest. COMPARISON: 12/15/2019. FINDINGS: Telemetry wires overlie the chest. The lungs are clear and expanded. There is no demonstrated pleural abnormality. Normal size heart. Normal mediastinum and álvaro. Normal visualized pulmonary arteries. Normal visualized aortic arch and descending thoracic aorta. Normal visualized thoracic spine. Normal visualized ribs, clavicles, and shoulders. There is no demonstrated abnormality of the visualized soft tissue structures of the upper abdomen. RAD/Chest 1 View (Portable) IMPRESSION: No acute cardiopulmonary disease or major interval change. Electronically Signed: Yuan Burrell DO at 22:41 EST Tel [phone], Service support ,
[2020-12-07 22:29] LABS: D-Dimer Quantitative (DVT/PE) <= 0.27 FEU/ug/m (0.27-0.49)
[2020-12-07 22:34] LABS: Anion Gap 9 (5-15); BUN 11 mg/dL (7-18); BUN/Creat Ratio 12.6 RATIO (10-20); Calcium,Total 8.8 mg/dL (8.5-10.1); Chloride 102 mmol/L (98-107); Creatinine, Serum 0.87 mg/dL (0.55-1.02); EST Glomerular Filtration Rate 79 mL/min (>60); Est Glom Filt Rate - Afr Amer 96 mL/min (>60); Glucose 219 mg/dL (74-106); Potassium 3.6 mmol/L (3.5-5.1); Sodium Level 137 mmol/L (136-145)
[2020-12-07 22:56] LABS: Internal QC Validated? YES +Cl - CLEAR BKGD; Pregnancy, Serum, hCG Quali. NEGATIVE Negative
[2020-12-07 23:03] VITALS: BP 127/94; PULSE 107; RESP 19; O2SAT 99
--- NOTE | 2020-12-07 23:28 | ED.DEP ---
ED Disposition - Plan for ED Patient: Instructions: ED BPV Vertigo Prescriptions: Meclizine HCl [Antivert] 25 mg PO TID PRN PRN #20 tab PRN Reason: Vertigo Prescription Printed Referrals: Allison Dunbar MD [Primary Care Provider] -
--- NOTE | 2020-12-07 23:34 | ED.DCSUM_ITS ---
- ER Visit Summary Date of Service: 12/07/20 Chief Complaint: Vertigo History of Present Illness: The patient is a 35 F presenting with feeling intoxicated and room spinning. Symptoms worsened with turning head and change in position. Patient states this started approximately 20 minutes prior to arrival. About 40 minutes before this started she took a CBD gummy. She states she has used these in the past but this was a different brand than she has used before. She started to feel room spinning and felt like she was intoxicated. She had tingling to both hands and feet. She denies headache. She had associated chest pain and shortness of breath. Denies recent illness. Denies other complaints. Physical Examination: Vitals are stable. Patient is afebrile. Alert no acute distress. HEENT exam is unremarkable. Neck is supple. No meningismus Lungs are clear and equal bilaterally. Heart is regular rate and rhythm. Abdomen is soft nontender nondistended. Extremities are unremarkable. Skin is warm and dry. No focal neurologic deficit. Normal strength and sensation Remainder of exam is unremarkable. Emergency Department Course and Treatment: EKG is sinus tachycardia rate of 121 with no acute ischemic changes. Patient given IV fluids, Valium. CBC normal except white count 13.7. Chemistry normal except glucose 219. Troponin is negative. D-dimer negative. hCG negative. On reevaluation, she feels much improved. She is given prescription for meclizine. She is advised to follow-up with her primary care physician. Advised return to the ED for worsening complaints. Disposition: Discharge home Impression: Benign positional vertigo This note was generated with [employer] dictation software. It may contain incorrect words, spelling, and punctuation that were not noted in review of the chart prior to signing ED Disposition - Plan for ED Patient: Instructions: ED BPV Vertigo Prescriptions: Meclizine HCl [Antivert] 25 mg PO TID PRN PRN #20 tab PRN Reason: Vertigo Prescription Printed Referrals: Allison Dunbar MD [Primary Care Provider] -
[2020-12-07 23:54] VITALS: BP 120/93; PULSE 111; RESP 18; O2SAT 97
== END 2020-12-07 23:55 | disposition home or self-care (01) ==
PROVIDERS: Emergency Provider Emergency Medicine; PCP Internal Medicine
DX: H81.10 Benign paroxysmal vertigo, unspecified ear (principal); I10 Essential (primary) hypertension; E11.9 Type 2 diabetes mellitus without complications; Z79.84 Long term (current) use of oral hypoglycemic drugs; Z79.899 Other long term (current) drug therapy
CPT/HCPCS: 71045; 80048; 84484; 84703; 85025; 85379; 93005; 96360; 96361; 99285; J7030; A4216

== ENCOUNTER → 2021-02-15 13:57 | Outpatient (CLI) | payer SELFPAY ==
[2021-02-15 13:10] VITALS: BMI 37.7
[2021-02-15 15:28] LABS: AST(SGOT) 92 U/L (15-37); Alanine Aminotransfer ALT/SGPT 181 U/L (13-56)
== END ==
PROVIDERS: PCP Internal Medicine; Referring Provider Physician Assistant; Visit Provider Physician Assistant
DX: K76.0 Fatty (change of) liver, not elsewhere classified (principal)
CPT/HCPCS: 36415; 84450; 84460